=== PATIENT | female | born 1955 | race Caucasian/White ===

== ENCOUNTER 2022-09-16 17:35 | Inpatient (IN) | payer MEDICARE, SELFPAY ==
[2022-09-16 18:28] VITALS: BP 136/63; PULSE 81; RESP 18; TEMP 36.7; O2SAT 98
--- NOTE | 2022-09-16 18:51 | PC.ADMIT ---
Pt admitted from [facility] after stating she wanted to hurt herself after losing her by suicide and also losing her mother. Pt A&O x4. Ambulating independently and steady on ft. Pt hungry and eating sandwich upon admission. Pt to BR x2 during admission then requesting something for diarrhea. Pt upset 2 no TV in room. States falls asleep with TV on and states can't sleep without it. Informed of inability to move bed and safety issues on this floor. Pt surprised but compliant.
[2022-09-16] MEDS: Acetaminophen 325 MG TABLET 650 MG PO (21:23)
[2022-09-16] MEDS: hydrOXYzine HCL 25 MG TABLET PO (21:23)
--- NOTE | 2022-09-16 22:36 | PC.ADMIT ---
Kirk was admitted to S1 at 1746 from [facility] on a CV for treatment of MDD and alcohol use disorder. Precipitant of admission include increased depression, helplessness, homelessness, and hopelessness. Patient also reported the recent of her first husbands mother (Grandmother of her children) last week, as well as the other her in June via suicide.?Kirk is alert and oriented x 4, but reports. Per crisis assessment patient was suicidal. Patient reported that she has been homeless since june and ?my son told me to go to the hospital and tell them I want to kill myself and they will give me a place to stay?. Patient denied SI/HI/AH/VH during admission assessment. Patient reported that she drinks daily about 3 to 4 beers. During the interview pt stated ?My son bought me 3 beers before going to the ED so that way I would have alcohol in my system?. Last drin 09/15/2021 prior to arriving at [facility]. Patient started on CIWA q 4 hours, scored a 5 upon admission. Thought process is linear, clear, and organized. Reported appetite is ?very good?. Reported sleep has been poor. Reported she receives 400 mg of seroquel at bedtime and still has difficulty falling asleep. Pt reports that she has a history of substance abuse, but has not had any use in greater than 5 years per pt report. Reports Degenerative disc disease, patient requesting ?something stronger than tylenol. I have had tylenol with codeine, perks in the past?. Pt had UTI in July to which she completed a course of antibiotics. Per crisis assessment seizure disorder, two seizures in 2016, but none since. Patient does not take any anti seizure medications. Crisis assessment states that she has thyroid d/o. No acute distress noted or reported. 15 minute safety checks initiated. ?
[2022-09-16] MEDS: busPIRone HCl 5 MG TABLET 15 MG PO (23:22)
[2022-09-16] MEDS: QUEtiapine Fumarate 400 MG TABLET PO (23:22)
[2022-09-16] MEDS: LORazepam 1 MG TABLET PO (23:25)
[2022-09-17] MEDS: traZODone HCL 50 MG TABLET PO ×2 (00:55→23:39)
[2022-09-17] MEDS: Melatonin 3 MG TABLET PO (00:55)
[2022-09-17 08:41] LABS: Alanine Aminotransferase 10 U/L (0-31); Albumin Level 3.3 g/dL (3.5-5.0); Alkaline Phosphatase 48 U/L (39-117); Anion Gap 12 (12-20); Aspartate Amino Transferase 11 U/L (5-31); Bilirubin Total 0.6 mg/dL (0.0-1.0); Blood Urea Nitrogen 27 mg/dL (9-16); Calcium 8.6 mg/dL (8.4-10.2); Carbon Dioxide 30 mmol/L (22-29); Chloride 103 mmol/L (96-108); Cholesterol 167 mg/dL; Estimated Glomerular Filt Rate > 60; Glucose Fasting 97 mg/dL (60-99); HDL Cholesterol 71 mg/dL; LDL Cholesterol Calculated 89 mg/dl; Potassium 4.3 mmol/L (3.3-5.1); Sodium 141 mmol/L (135-145); Total Protein 5.4 g/dL (6.5-8.0); Triglycerides 38 mg/dL
[2022-09-17] MEDS: busPIRone HCl 5 MG TABLET 15 MG PO ×2 (09:13→21:44)
[2022-09-17] MEDS: Cyanocobalamin (Vitamin B-12) 1,000 MCG TABLET 1000 MCG PO (09:13)
[2022-09-17 09:33] VITALS: BP 129/61; PULSE 89; RESP 18; TEMP 36.1; O2SAT 94
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
--- NOTE | 2022-09-17 16:10 | HO.PM.IMCN ---
History of Present Illness Data of Consult Service Date: 09/17/22 Primary Care Provider: Naheed Maurer NP [facility] Reason for consult: Admission H&P Pt is a 66-year-old female with a PMH significant for MDD, anxiety, alcohol dependence, and degenerative arthritis of the lumbar spine who is seen for admission history and physical to the geripsych unit. Pt complains of chronic back pain, for which Tylenol offers little relief. Patient otherwise has no acute complaints. Denies chest pain/pressure, palpitations. No shortness of breath. Denies fever, chills, nausea, vomiting, abdominal pain. No changes in bowel or bladder habits. Review of Systems Review of Systems: Negative except for that which is stated in the HPI PMFSH Social History Household Members: None Housing: Homeless Do you presently have visiting nurse or other home services: No Patient Tobacco Use Status: Former Tobacco user Smoked in Last 30 Days: No Patient Interested in Nicotine Replacement: No Patient Given Instructions on How to Stop Smoking: No Second Hand Smoke Exposure: No Use of substances other than those prescribed or required for medical reasons: No Currently Displaying Signs/Symptoms of Drug Intoxication Withdrawal: No Have you been hit, kicked, punched, or otherwise hurt by someone within the past year? If so, by whom?: No Do you feel safe in your current relationship?: No Current Relationship Is there a partner from a previous relationship who is making you feel unsafe now?: No Are you made to feel afraid or neglected: No Spiritual Healthcare Practices: Patient denies Adventist Healthcare Practices: Patient denies Cultural Healthcare Practices: Patient denies Advance Directives: No Advance Directives Information Provided: No Do you have thoughts of harming others: None Do you have a plan to hurt others: No Plan Recently lost weight without trying: No Eating poorly because of decreased appetite: No Nutrition Risks: No Nutritional Risk Patient : No : No Poor oral hygiene: No Meds Allergies Allergy/AdvReac Type Severity Reaction Status Date / Time Unable to Assess Allergy Unverified 09/16/22 18:19 Active Medications: Current Medications Acetaminophen (Acetaminophen 325 Mg Tablet) 650 mg PO Q6H PRN PRN Reason: Headache/Pain Mild Scale (1-3) Last Admin: 09/16/22 21:23 Dose: 650 mg Al Hydroxide/Mg Hydroxide (Magnesium Hydrox/Alum Hydrox 30 Ml Oral.Susp) 30 ml PO Q6H PRN PRN Reason: Heartburn/Nausea Buspirone HCl (Buspirone Hcl 5 Mg Tablet) 15 mg PO BID [facility] Last Admin: 09/17/22 09:13 Dose: 15 mg Cyanocobalamin (Cyanocobalamin (Vitamin B-12) 1,000 Mcg Tablet) 1,000 mcg PO DAILY [facility] Last Admin: 09/17/22 09:13 Dose: 1,000 mcg Hydroxyzine HCl (Hydroxyzine Hcl 25 Mg Tablet) 25 mg PO Q6H PRN PRN Reason: Anxiety Last Admin: 09/16/22 21:23 Dose: 25 mg Loperamide HCl (Loperamide Hcl 2 Mg Capsule) 4 mg PO Q4H PRN PRN Reason: Diarrhea Lorazepam (Lorazepam 1 Mg Tablet) 1 mg PO Q4H PRN PRN Reason: Alcohol Withdrawal Last Admin: 09/16/22 23:25 Dose: 1 mg Magnesium Hydroxide (Milk Of Magnesia 30 Ml Oral.Susp) 30 ml PO DAILY PRN PRN Reason: Constipation Melatonin (Melatonin 3 Mg Tablet) 3 mg PO BEDTIME PRN PRN Reason: Sleep Last Admin: 09/17/22 00:55 Dose: 3 mg Mirtazapine (Mirtazapine 15 Mg Tablet) 15 mg PO BEDTIME TISHA Naltrexone HCl (Naltrexone Hcl 50 Mg Tablet) 50 mg PO DAILY [facility] Quetiapine Fumarate (Quetiapine Fumarate 400 Mg Tablet) 400 mg PO BEDTIME [facility] Last Admin: 09/16/22 23:22 Dose: 400 mg Trazodone HCl (Trazodone Hcl 50 Mg Tablet) 50 mg PO BEDTIME MRX1 PRN PRN Reason: Insomnia Last Admin: 09/17/22 00:55 Dose: 50 mg Home Medications Medication Instructions Recorded Confirmed Last Taken Type buspirone 15 mg tablet 1 tab PO BID 09/16/22 09/16/22 09/16/22 07:00 History cyanocobalamin (vitamin B-12) 1,000 mcg PO DAILY 09/16/22 09/16/22 09/16/22 07:00 History melatonin 3 mg PO BEDTIME PRN Sleep 09/16/22 09/16/22 Unknown History quetiapine 400 mg tablet 1 tab PO BEDTIME 09/16/22 09/16/22 09/16/22 01:00 History Physical Exam Vital Signs and Narrative: Vital Signs: Last Vital Signs Temp 97.0 F 09/17/22 09:33 Pulse 89 09/17/22 09:33 Resp 18 09/17/22 09:33 BP 129/61 09/17/22 09:33 Pulse Ox 94 09/17/22 09:33 O2 Del Method 09/17/22 09:33 General: AOx3, no acute distress Resp: CTA bilaterally CVS: S1, S2, RRR GI: +BS, NT, no distention Skin: No rash Neuro: Cranial nerves II-XII grossly intact. Motor grossly intact Back: Mildly tender to palpation Extremities: No edema Psych: Appropriate affect Results Labs 09/17/22 08:01 Labs: Laboratory Results - last 24 hr 09/17/22 08:01 Anion Gap 12 Estim Creat Clear Calc TNP Estimated GFR > 60 Fasting Glucose 97 Calcium 8.6 Total Bilirubin 0.6 AST 11 ALT 10 Alkaline Phosphatase 48 Total Protein 5.4 L Albumin 3.3 L Triglycerides 38 Cholesterol 167 LDL Cholesterol, Calc 89 HDL Cholesterol 71 Assessment and Plan (1) Degenerative arthritis of lumbar spine: Status: Acute Plan Pt is a 66-year-old female with a PMH significant for MDD, anxiety, alcohol dependence, and degenerative arthritis of the lumbar spine who is seen for admission history and physical to the geripsych unit. Pt complains of chronic back pain, for which Tylenol offers little relief. Patient otherwise has no acute complaints. Back pain, chronic Acetaminophen p.r.n. for pain management Encourage stretching and ambulation Mental health Plan as per Psychiatry team Thank you for allowing us to participate in the care this patient. Signing of this time. Please contact us with any acute questions or concerns. Time Spent With Patient Time: Total time managing care of this patient today ____ minutes.
[2022-09-17 19:20] VITALS: BP 135/63; PULSE 93; RESP 18; TEMP 36.6; O2SAT 93
[2022-09-17] MEDS: hydrOXYzine HCL 25 MG TABLET PO (20:35)
[2022-09-17] MEDS: QUEtiapine Fumarate 400 MG TABLET PO (21:44)
[2022-09-17] MEDS: Mirtazapine 15 MG TABLET PO (21:44)
[2022-09-18 06:00] VITALS: BP 126/57; PULSE 90; RESP 20; TEMP 36.9; O2SAT 99
[2022-09-18] MEDS: busPIRone HCl 5 MG TABLET 15 MG PO ×2 (10:45→22:07)
[2022-09-18] MEDS: Cyanocobalamin (Vitamin B-12) 1,000 MCG TABLET 1000 MCG PO (10:46)
[2022-09-18] MEDS: hydrOXYzine HCL 25 MG TABLET PO ×2 (10:46→17:59)
[2022-09-18] MEDS: Naltrexone HCl 50 MG TABLET PO (10:46)
--- NOTE | 2022-09-18 11:44 | HO.PSYCHPN ---
Subjective Subjective Date of Service: 09/18/22 Reason For Visit: Suicidal ideation Interim History: asking about referal to rehab for AUD, referred to speak with SW on tuesday. asking for PRN for anxiety, was educated re hydroxyzine she already has available. no other complaints or requests. per staff, scored zero on CIWA today. slept OK last night. Mental Status Exam Mental Status Exam Patient Appearance: Well Grooomed and Appropriate Patient Orientation: Person, Place, Time and Situation Level of Consciousness: Awake and Appropriate Patient Behavior: Cooperative Mood Description: Calm Affect Description: Constricted Ability to Follow Directions: Good Speech Pattern: Clear Hallucinations: None Delusions: Not Present Thought Process: Linear Thought Content: positive for Circumstantial Judgement: Fair Diagnostics Vital Signs (24Hr): Vital Signs - 24 hr 09/17/22 19:20 Temperature 98 F Pulse Rate 93 Respiratory Rate 18 Blood Pressure 135/63 Pulse Oximetry 93 Oxygen Delivery Method Room Air Labs 09/17/22 08:01 Labs: Laboratory Results - last 48 hr 09/17/22 08:01 Sodium 141 Potassium 4.3 Chloride 103 Carbon Dioxide 30 H Anion Gap 12 BUN 27 H Creatinine 0.90 Estim Creat Clear Calc TNP Estimated GFR > 60 Fasting Glucose 97 Calcium 8.6 Total Bilirubin 0.6 AST 11 ALT 10 Alkaline Phosphatase 48 Total Protein 5.4 L Albumin 3.3 L Triglycerides 38 Cholesterol 167 LDL Cholesterol, Calc 89 HDL Cholesterol 71 Medications Medications Current Medications Acetaminophen (Acetaminophen 325 Mg Tablet) 650 mg PO Q6H PRN PRN Reason: Headache/Pain Mild Scale (1-3) Last Admin: 09/16/22 21:23 Dose: 650 mg Al Hydroxide/Mg Hydroxide (Magnesium Hydrox/Alum Hydrox 30 Ml Oral.Susp) 30 ml PO Q6H PRN PRN Reason: Heartburn/Nausea Buspirone HCl (Buspirone Hcl 5 Mg Tablet) 15 mg PO BID [facility] Last Admin: 09/18/22 10:45 Dose: 15 mg Cyanocobalamin (Cyanocobalamin (Vitamin B-12) 1,000 Mcg Tablet) 1,000 mcg PO DAILY [facility] Last Admin: 09/18/22 10:46 Dose: 1,000 mcg Hydroxyzine HCl (Hydroxyzine Hcl 25 Mg Tablet) 25 mg PO Q6H PRN PRN Reason: Anxiety Last Admin: 09/18/22 10:46 Dose: 25 mg Loperamide HCl (Loperamide Hcl 2 Mg Capsule) 4 mg PO Q4H PRN PRN Reason: Diarrhea Lorazepam (Lorazepam 1 Mg Tablet) 1 mg PO Q4H PRN PRN Reason: Alcohol Withdrawal Last Admin: 09/16/22 23:25 Dose: 1 mg Magnesium Hydroxide (Milk Of Magnesia 30 Ml Oral.Susp) 30 ml PO DAILY PRN PRN Reason: Constipation Melatonin (Melatonin 3 Mg Tablet) 3 mg PO BEDTIME PRN PRN Reason: Sleep Last Admin: 09/17/22 00:55 Dose: 3 mg Mirtazapine (Mirtazapine 15 Mg Tablet) 15 mg PO BEDTIME TISHA Last Admin: 09/17/22 21:44 Dose: 15 mg Naltrexone HCl (Naltrexone Hcl 50 Mg Tablet) 50 mg PO DAILY TISHA Last Admin: 09/18/22 10:46 Dose: 50 mg Quetiapine Fumarate (Quetiapine Fumarate 400 Mg Tablet) 400 mg PO BEDTIME TISHA Last Admin: 09/17/22 21:44 Dose: 400 mg Trazodone HCl (Trazodone Hcl 50 Mg Tablet) 50 mg PO BEDTIME MRX1 PRN PRN Reason: Insomnia Last Admin: 09/17/22 23:39 Dose: 50 mg Allergies Allergies Allergy/AdvReac Type Severity Reaction Status Date / Time Unable to Assess Allergy Unverified 09/16/22 18:19 Assessment & Plan Assessment & Plan (1) Degenerative arthritis of lumbar spine: Status: Acute Code(s): M47.816 - Spondylosis without myelopathy or radiculopathy, lumbar region (2) Depressive disorder: Status: Acute Code(s): F32.A - Depression, unspecified (3) Alcohol use disorder: Status: Acute Code(s): F10.90 - Alcohol use, unspecified, uncomplicated Plan The patient is a middle-aged female with a prior history of alcohol use disorder not treated as per her report admitted for suicidal ideation, according to the crisis report she had several episodes in June that she tried to overdose in a suicidal attempts due to psychosocial stressors.? At this moment she is homeless, she has limited social support and she reported depression with suicidal ideation.? Plan 1. Gather collateral information.? 2. I offered naltrexone for alcohol use disorder the patient agreed.? 3. The patient reports depression and she agreed to start Remeron 15 mg p.o. q.h.s. to target depression and insomnia.? 4. Continue medical workout.? 5. . CIWA? and reassess in 72 hours to discontinue to avoid alcohol withdrawal symptoms.? 6. Reassessment results 09/18: continue current mgmt. scoring low on CIWA. will DC tomorrow if that continues. asking for rehab. Reason for contiued inpatient stay Substantial Risk for: harm to self, inability to function and rapid decompensation Time Spent With Patient Time: Total time managing care of this patient today _15___ minutes.
[2022-09-18 17:16] VITALS: BP 143/65; PULSE 88
[2022-09-18 20:15] VITALS: BP 142/70; PULSE 100; RESP 17; TEMP 36.4; O2SAT 98
[2022-09-18] MEDS: Melatonin 3 MG TABLET PO (22:06)
[2022-09-18] MEDS: QUEtiapine Fumarate 400 MG TABLET PO (22:06)
[2022-09-18] MEDS: Mirtazapine 15 MG TABLET PO (22:07)
[2022-09-18] MEDS: Acetaminophen 325 MG TABLET 650 MG PO (22:13)
[2022-09-18] MEDS: traZODone HCL 50 MG TABLET PO (23:23)
[2022-09-19] MEDS: hydrOXYzine HCL 25 MG TABLET PO ×3 (02:10→23:17)
[2022-09-19] MEDS: Naltrexone HCl 50 MG TABLET PO (08:56)
[2022-09-19] MEDS: Cyanocobalamin (Vitamin B-12) 1,000 MCG TABLET 1000 MCG PO (08:57)
[2022-09-19 09:00] VITALS: BP 135/63; PULSE 69; RESP 16; TEMP 36.6; O2SAT 98
[2022-09-19] MEDS: busPIRone HCl 5 MG TABLET 15 MG PO ×2 (09:04→21:31)
[2022-09-19] MEDS: Acetaminophen 325 MG TABLET 650 MG PO ×2 (09:05→23:18)
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
[2022-09-19 13:27] VITALS: BMI 33.0
[2022-09-19] MEDS: Ketorolac Tromethamine 15 MG/ML VIAL IM (13:28)
[2022-09-19 18:00] VITALS: BP 116/59; PULSE 93; RESP 18; TEMP 36.4; O2SAT 98
[2022-09-19] MEDS: Mirtazapine 30 MG TABLET PO (21:31)
[2022-09-19] MEDS: QUEtiapine Fumarate 400 MG TABLET PO (21:32)
[2022-09-19] MEDS: Melatonin 3 MG TABLET PO (23:17)
[2022-09-20 07:30] VITALS: BP 153/63; PULSE 83; RESP 16; TEMP 36.2; O2SAT 98
[2022-09-20] MEDS: busPIRone HCl 5 MG TABLET 15 MG PO ×2 (10:29→21:44)
[2022-09-20] MEDS: Naltrexone HCl 50 MG TABLET PO (10:29)
[2022-09-20] MEDS: Cyanocobalamin (Vitamin B-12) 1,000 MCG TABLET 1000 MCG PO (10:29)
--- NOTE | 2022-09-20 11:32 | HO.PSYCHPN ---
Subjective Subjective Date of Service: 09/20/22 Reason For Visit: Suicidal ideation Subjective Notes: Conditional Voluntary Interim History: The nursing staff reported the patient had a verbal altercation with the staff yesterday since she wanted to watch a violent TV movie and day redirected her. She complained of back pain and she received Toradol IM with known prove min. She had been demanding and attention seeking. The staff reported that the patient disclosed that before coming here, while she was in the emergency room she was instructed by her sons to tell her that she was suicidal so she take an find her placement in the unit. On interview the patient denies new symptoms she is alert, oriented, future oriented. Mental Status Exam Mental Status Exam Patient Appearance: Well Grooomed and Appropriate Patient Orientation: Person, Place, Time and Situation Level of Consciousness: Awake and Appropriate Patient Behavior: Guarded Mood Description: Constricted Affect Description: Constricted and Labile Patient Cognition Impaired: Yes Ability to Follow Directions: Good Speech Pattern: Clear Hallucinations: None Delusions: Not Present Thought Process: Linear Thought Content: positive for Intact Judgement: Fair Diagnostics Vital Signs (24Hr): Vital Signs - 24 hr 09/19/22 18:00 09/20/22 07:30 Temperature 97.6 F 97.1 F Pulse Rate 93 83 Respiratory Rate 18 16 Blood Pressure 116/59 L 153/63 H Pulse Oximetry 98 98 Oxygen Delivery Method Room Air Room Air BMI result Body Mass Index 33.0 Labs 09/17/22 08:01 Medications Medications Current Medications Acetaminophen (Acetaminophen 325 Mg Tablet) 650 mg PO Q6H PRN PRN Reason: Headache/Pain Mild Scale (1-3) Last Admin: 09/19/22 23:18 Dose: 650 mg Al Hydroxide/Mg Hydroxide (Magnesium Hydrox/Alum Hydrox 30 Ml Oral.Susp) 30 ml PO Q6H PRN PRN Reason: Heartburn/Nausea Buspirone HCl (Buspirone Hcl 5 Mg Tablet) 15 mg PO BID [facility] Last Admin: 09/20/22 10:29 Dose: 15 mg Cyanocobalamin (Cyanocobalamin (Vitamin B-12) 1,000 Mcg Tablet) 1,000 mcg PO DAILY [facility] Last Admin: 09/20/22 10:29 Dose: 1,000 mcg Hydroxyzine HCl (Hydroxyzine Hcl 25 Mg Tablet) 25 mg PO Q6H PRN PRN Reason: Anxiety Last Admin: 09/19/22 23:17 Dose: 25 mg Loperamide HCl (Loperamide Hcl 2 Mg Capsule) 4 mg PO Q4H PRN PRN Reason: Diarrhea Magnesium Hydroxide (Milk Of Magnesia 30 Ml Oral.Susp) 30 ml PO DAILY PRN PRN Reason: Constipation Melatonin (Melatonin 3 Mg Tablet) 3 mg PO BEDTIME PRN PRN Reason: Sleep Last Admin: 09/19/22 23:17 Dose: 3 mg Mirtazapine (Mirtazapine 30 Mg Tablet) 30 mg PO BEDTIME [facility] Last Admin: 09/19/22 21:31 Dose: 30 mg Naltrexone HCl (Naltrexone Hcl 50 Mg Tablet) 50 mg PO DAILY [facility] Last Admin: 09/20/22 10:29 Dose: 50 mg Quetiapine Fumarate (Quetiapine Fumarate 400 Mg Tablet) 400 mg PO BEDTIME [facility] Last Admin: 09/19/22 21:32 Dose: 400 mg Trazodone HCl (Trazodone Hcl 50 Mg Tablet) 50 mg PO BEDTIME MRX1 PRN PRN Reason: Insomnia Last Admin: 09/18/22 23:23 Dose: 50 mg Allergies Allergies Allergy/AdvReac Type Severity Reaction Status Date / Time codeine AdvReac Headache Verified 09/19/22 13:31 Assessment & Plan Assessment & Plan (1) Degenerative arthritis of lumbar spine: Status: Acute Code(s): M47.816 - Spondylosis without myelopathy or radiculopathy, lumbar region (2) Depressive disorder: Status: Acute Code(s): F32.A - Depression, unspecified (3) Alcohol use disorder: Status: Acute Code(s): F10.90 - Alcohol use, unspecified, uncomplicated Plan The patient is a middle-aged female with a prior history of alcohol use disorder not treated as per her report admitted for suicidal ideation, according to the crisis report she had several episodes in June that she tried to overdose in a suicidal attempts due to psychosocial stressors.? At this moment she is homeless, she has limited social support and she reported depression with suicidal ideation.? Plan 1. Gather collateral information.? 2. I offered naltrexone for alcohol use disorder the patient agreed.? 3. The patient reports depression and she agreed to start Remeron 15 mg p.o. q.h.s. to target depression and insomnia.? 4. Continue medical workout.? 5. . CIWA? and reassess in 72 hours to discontinue to avoid alcohol withdrawal symptoms.? CIWA discontinue to in April 20. 6. Reassessment results 7. Discharge planning to substance abuse program Reason for contiued inpatient stay Substantial Risk for: inability to function, rapid decompensation and med/psych decompensation Time Spent With Patient Time: Total time managing care of this patient today _20___ minutes.
[2022-09-20] MEDS: hydrOXYzine HCL 25 MG TABLET PO ×2 (17:40→23:54)
[2022-09-20 18:00] VITALS: BP 183/76; PULSE 83; RESP 18; TEMP 36.4; O2SAT 96
[2022-09-20] MEDS: Mirtazapine 30 MG TABLET PO (21:44)
[2022-09-20] MEDS: QUEtiapine Fumarate 400 MG TABLET PO (21:45)
[2022-09-20] MEDS: traZODone HCL 50 MG TABLET PO (23:54)
[2022-09-21 07:30] VITALS: BP 139/69; PULSE 71; RESP 16; TEMP 36.4; O2SAT 96
[2022-09-21] MEDS: Cyanocobalamin (Vitamin B-12) 1,000 MCG TABLET 1000 MCG PO (10:37)
[2022-09-21] MEDS: busPIRone HCl 5 MG TABLET 15 MG PO ×2 (10:37→20:38)
[2022-09-21] MEDS: Naltrexone HCl 50 MG TABLET PO (10:38)
[2022-09-21] MEDS: hydrOXYzine HCL 25 MG TABLET PO ×2 (11:31→20:39)
--- NOTE | 2022-09-21 12:19 | P.PNPSI_ITS ---
Subjective Subjective Date of Service: 09/21/22 Reason For Visit: Suicidal ideation Subjective Notes: Conditional Voluntary Interim History: The nursing staff reported the patient slept well last night, she had been demanding at times but redirectable. The family welfare social work professor reported they are referring her to different programs. On interview the patient denies suicidal thoughts no side effects with the current treatment. Mental Status Exam Mental Status Exam Patient Appearance: Well Grooomed and Appropriate Patient Orientation: Person, Place and Situation Level of Consciousness: Awake and Appropriate Patient Behavior: Cooperative Mood Description: Calm Affect Description: Constricted Patient Cognition Impaired: No Ability to Follow Directions: Good Speech Pattern: Clear Hallucinations: None Delusions: Not Present Thought Process: Linear Thought Content: positive for Circumstantial Judgement: Fair Diagnostics Vital Signs (24Hr): Vital Signs - 24 hr 09/20/22 18:00 Temperature 97.6 F Pulse Rate 83 Respiratory Rate 18 Blood Pressure 183/76 H Pulse Oximetry 96 Oxygen Delivery Method Room Air BMI result Body Mass Index 33.0 Labs 09/17/22 08:01 Medications Medications Current Medications Acetaminophen (Acetaminophen 325 Mg Tablet) 650 mg PO Q6H PRN PRN Reason: Headache/Pain Mild Scale (1-3) Last Admin: 09/19/22 23:18 Dose: 650 mg Al Hydroxide/Mg Hydroxide (Magnesium Hydrox/Alum Hydrox 30 Ml Oral.Susp) 30 ml PO Q6H PRN PRN Reason: Heartburn/Nausea Buspirone HCl (Buspirone Hcl 5 Mg Tablet) 15 mg PO BID [facility] Last Admin: 09/21/22 10:37 Dose: 15 mg Cyanocobalamin (Cyanocobalamin (Vitamin B-12) 1,000 Mcg Tablet) 1,000 mcg PO DAILY [facility] Last Admin: 09/21/22 10:37 Dose: 1,000 mcg Hydroxyzine HCl (Hydroxyzine Hcl 25 Mg Tablet) 25 mg PO Q6H PRN PRN Reason: Anxiety Last Admin: 09/21/22 11:31 Dose: 25 mg Loperamide HCl (Loperamide Hcl 2 Mg Capsule) 4 mg PO Q4H PRN PRN Reason: Diarrhea Magnesium Hydroxide (Milk Of Magnesia 30 Ml Oral.Susp) 30 ml PO DAILY PRN PRN Reason: Constipation Melatonin (Melatonin 3 Mg Tablet) 3 mg PO BEDTIME PRN PRN Reason: Sleep Last Admin: 02/26/23 23:17 Dose: 3 mg Mirtazapine (Mirtazapine 30 Mg Tablet) 30 mg PO BEDTIME [facility] Last Admin: 09/20/22 21:44 Dose: 30 mg Naltrexone HCl (Naltrexone Hcl 50 Mg Tablet) 50 mg PO DAILY [facility] Last Admin: 09/21/22 10:38 Dose: 50 mg Quetiapine Fumarate (Quetiapine Fumarate 400 Mg Tablet) 400 mg PO BEDTIME [facility] Last Admin: 09/20/22 21:45 Dose: 400 mg Trazodone HCl (Trazodone Hcl 50 Mg Tablet) 50 mg PO BEDTIME MRX1 PRN PRN Reason: Insomnia Last Admin: 09/20/22 23:54 Dose: 50 mg Allergies Allergies Allergy/AdvReac Type Severity Reaction Status Date / Time codeine AdvReac Headache Verified 09/19/22 13:31 Assessment & Plan Assessment & Plan (1) Degenerative arthritis of lumbar spine: Status: Acute Code(s): M47.816 - Spondylosis without myelopathy or radiculopathy, lumbar region (2) Depressive disorder: Status: Acute Code(s): F32.A - Depression, unspecified (3) Alcohol use disorder: Status: Acute Code(s): F10.90 - Alcohol use, unspecified, uncomplicated Plan The patient is a middle-aged female with a prior history of alcohol use disorder not treated as per her report admitted for suicidal ideation, according to the crisis report she had several episodes in June that she tried to overdose in a suicidal attempts due to psychosocial stressors.? At this moment she is homeless, she has limited social support and she reported depression with suicidal ideation.? Plan 1. Gather collateral information.? 2. I offered naltrexone for alcohol use disorder the patient agreed.? 3. The patient reports depression and she agreed to start Remeron 15 mg p.o. q.h.s. to target depression and insomnia.? 4. Continue medical workout.? 5. . CIWA? and reassess in 72 hours to discontinue to avoid alcohol withdrawal symptoms.? CIWA discontinue to in September 20. 6. Reassessment results 7. Discharge planning to substance abuse program Reason for contiued inpatient stay Substantial Risk for: inability to function, rapid decompensation and med/psych decompensation Time Spent With Patient Time: Total time managing care of this patient today __20__ minutes.
[2022-09-21 18:00] VITALS: BP 143/67; PULSE 78; RESP 16; TEMP 36.6; O2SAT 93
[2022-09-21] MEDS: QUEtiapine Fumarate 400 MG TABLET PO (20:39)
[2022-09-21] MEDS: Mirtazapine 30 MG TABLET PO (20:39)
[2022-09-21] MEDS: traZODone HCL 50 MG TABLET PO (22:42)
[2022-09-22] MEDS: hydrOXYzine HCL 25 MG TABLET PO (05:31)
[2022-09-22 06:00] VITALS: BP 132/76; PULSE 94; RESP 18; TEMP 36.8; O2SAT 98
[2022-09-22] MEDS: Naltrexone HCl 50 MG TABLET PO (11:47)
[2022-09-22] MEDS: busPIRone HCl 5 MG TABLET 15 MG PO ×2 (11:47→20:17)
[2022-09-22] MEDS: Cyanocobalamin (Vitamin B-12) 1,000 MCG TABLET 1000 MCG PO (11:47)
--- NOTE | 2022-09-22 12:18 | HO.PSYCHPN ---
Subjective Subjective Date of Service: 09/22/22 Reason For Visit: Suicidal ideation Subjective Notes: Conditional Voluntary Interim History: The nursing staff reported the patient complained of anxiety, she was seen that she has intrusive and try to help other patients. The occupational therapist reported that she has not participating any groups. The geriatric social work professor reported that she was referred to [facility], shelters, disability housing and others. On interview the patient denies new symptoms, waiting for placement. No signs or symptoms of alcohol withdrawal, tolerating fairly well here medications. Mental Status Exam Mental Status Exam Patient Appearance: Well Grooomed and Appropriate Patient Orientation: Person and Situation Level of Consciousness: Awake and Appropriate Patient Behavior: Guarded and Passive Mood Description: Calm Affect Description: Constricted Patient Cognition Impaired: Yes Ability to Follow Directions: Good Speech Pattern: Clear Hallucinations: None Delusions: Not Present Thought Process: Linear Thought Content: positive for [place] and positive for Circumstantial Judgement: Fair Diagnostics Vital Signs (24Hr): Vital Signs - 24 hr 09/21/22 18:00 09/22/22 06:00 Temperature 97.9 F 98.3 F Pulse Rate 78 94 Respiratory Rate 16 18 Blood Pressure 143/67 H 132/76 Pulse Oximetry 93 98 Oxygen Delivery Method Room Air Room Air BMI result Body Mass Index 33.0 Labs 09/17/22 08:01 Medications Medications Current Medications Acetaminophen (Acetaminophen 325 Mg Tablet) 650 mg PO Q6H PRN PRN Reason: Headache/Pain Mild Scale (1-3) Last Admin: 09/19/22 23:18 Dose: 650 mg Al Hydroxide/Mg Hydroxide (Magnesium Hydrox/Alum Hydrox 30 Ml Oral.Susp) 30 ml PO Q6H PRN PRN Reason: Heartburn/Nausea Buspirone HCl (Buspirone Hcl 5 Mg Tablet) 15 mg PO BID [facility] Last Admin: 09/22/22 11:47 Dose: 15 mg Cyanocobalamin (Cyanocobalamin (Vitamin B-12) 1,000 Mcg Tablet) 1,000 mcg PO DAILY [facility] Last Admin: 09/22/22 11:47 Dose: 1,000 mcg Hydroxyzine HCl (Hydroxyzine Hcl 25 Mg Tablet) 25 mg PO Q6H PRN PRN Reason: Anxiety Last Admin: 09/22/22 05:31 Dose: 25 mg Loperamide HCl (Loperamide Hcl 2 Mg Capsule) 4 mg PO Q4H PRN PRN Reason: Diarrhea Magnesium Hydroxide (Milk Of Magnesia 30 Ml Oral.Susp) 30 ml PO DAILY PRN PRN Reason: Constipation Melatonin (Melatonin 3 Mg Tablet) 3 mg PO BEDTIME PRN PRN Reason: Sleep Last Admin: 09/19/22 23:17 Dose: 3 mg Mirtazapine (Mirtazapine 30 Mg Tablet) 30 mg PO BEDTIME [facility] Last Admin: 09/21/22 20:39 Dose: 30 mg Naltrexone HCl (Naltrexone Hcl 50 Mg Tablet) 50 mg PO DAILY [facility] Last Admin: 09/22/22 11:47 Dose: 50 mg Quetiapine Fumarate (Quetiapine Fumarate 400 Mg Tablet) 400 mg PO BEDTIME [facility] Last Admin: 09/21/22 20:39 Dose: 400 mg Trazodone HCl (Trazodone Hcl 50 Mg Tablet) 50 mg PO BEDTIME MRX1 PRN PRN Reason: Insomnia Last Admin: 09/21/22 22:42 Dose: 50 mg Allergies Allergies Allergy/AdvReac Type Severity Reaction Status Date / Time codeine AdvReac Headache Verified 09/19/22 13:31 Assessment & Plan Assessment & Plan (1) Degenerative arthritis of lumbar spine: Status: Acute Code(s): M47.816 - Spondylosis without myelopathy or radiculopathy, lumbar region (2) Depressive disorder: Status: Acute Code(s): F32.A - Depression, unspecified (3) Alcohol use disorder: Status: Acute Code(s): F10.90 - Alcohol use, unspecified, uncomplicated Plan The patient is a middle-aged female with a prior history of alcohol use disorder not treated as per her report admitted for suicidal ideation, according to the crisis report she had several episodes in June that she tried to overdose in a suicidal attempts due to psychosocial stressors.? At this moment she is homeless, she has limited social support and she reported depression with suicidal ideation.? Plan 1. Gather collateral information.? 2. I offered naltrexone for alcohol use disorder the patient agreed.? 3. The patient reports depression and she agreed to start Remeron 15 mg p.o. q.h.s. to target depression and insomnia.? 4. Continue medical workout.? 5. . CIWA? and reassess in 72 hours to discontinue to avoid alcohol withdrawal symptoms.? CIWA discontinue to in September 20. 6. Reassessment results 7. Discharge planning to substance abuse program 8. Add Seroquel 50 mg at 7 pm. Reason for contiued inpatient stay Substantial Risk for: inability to function, rapid decompensation and med/psych decompensation Time Spent With Patient Time: Total time managing care of this patient today __20__ minutes.
[2022-09-22] MEDS: QUEtiapine Fumarate 50 MG TABLET PO (17:59)
[2022-09-22 18:00] VITALS: BP 141/66; PULSE 78; RESP 18; TEMP 36.2; O2SAT 98
[2022-09-22] MEDS: Mirtazapine 30 MG TABLET PO (20:17)
[2022-09-22] MEDS: traZODone HCL 50 MG TABLET PO (22:24)
[2022-09-22] MEDS: QUEtiapine Fumarate 400 MG TABLET PO (22:24)
[2022-09-23] MEDS: traZODone HCL 50 MG TABLET PO ×2 (01:19→23:52)
[2022-09-23 06:00] VITALS: BP 136/59; PULSE 82; RESP 18; TEMP 36.2; O2SAT 96
[2022-09-23 07:00] VITALS: BMI 33.3
[2022-09-23] MEDS: Cyanocobalamin (Vitamin B-12) 1,000 MCG TABLET 1000 MCG PO (09:49)
[2022-09-23] MEDS: QUEtiapine Fumarate 50 MG TABLET PO (09:50)
[2022-09-23] MEDS: busPIRone HCl 5 MG TABLET 15 MG PO ×2 (09:50→21:58)
[2022-09-23] MEDS: Naltrexone HCl 50 MG TABLET PO (09:50)
--- NOTE | 2022-09-23 13:27 | P.PNPSI_ITS ---
Subjective Subjective Date of Service: 09/23/22 Reason For Visit: Suicidal ideation Subjective Notes: Conditional Voluntary Interim History: The nursing staff reported the patient had been compliant with treatment, she was seen in the unit, interacting appropriately with peers and staff. On interview the patient denies new symptoms, waiting for placement. Mental Status Exam Mental Status Exam Patient Appearance: Well Grooomed and Appropriate Patient Orientation: Person, Place, Time and Situation Level of Consciousness: Awake, Appropriate and Follows Commands Patient Behavior: Appropriate and Cooperative Mood Description: Calm Affect Description: Constricted Patient Cognition Impaired: No Ability to Follow Directions: Good Speech Pattern: Clear Hallucinations: None Delusions: Not Present Thought Process: Linear Thought Content: positive for [place] and positive for Circumstantial Judgement: Fair Diagnostics Vital Signs (24Hr): Vital Signs - 24 hr 09/22/22 18:00 09/23/22 06:00 Temperature 97.1 F 97.2 F Pulse Rate 78 82 Respiratory Rate 18 18 Blood Pressure 141/66 H 136/59 L Pulse Oximetry 98 96 Oxygen Delivery Method Room Air Room Air BMI result Body Mass Index 33.3 Labs 09/17/22 08:01 Medications Medications Current Medications Acetaminophen (Acetaminophen 325 Mg Tablet) 650 mg PO Q6H PRN PRN Reason: Headache/Pain Mild Scale (1-3) Last Admin: 09/19/22 23:18 Dose: 650 mg Al Hydroxide/Mg Hydroxide (Magnesium Hydrox/Alum Hydrox 30 Ml Oral.Susp) 30 ml PO Q6H PRN PRN Reason: Heartburn/Nausea Buspirone HCl (Buspirone Hcl 5 Mg Tablet) 15 mg PO BID [facility] Last Admin: 09/23/22 09:50 Dose: 15 mg Cyanocobalamin (Cyanocobalamin (Vitamin B-12) 1,000 Mcg Tablet) 1,000 mcg PO DAILY [facility] Last Admin: 09/23/22 09:49 Dose: 1,000 mcg Hydroxyzine HCl (Hydroxyzine Hcl 25 Mg Tablet) 25 mg PO Q6H PRN PRN Reason: Anxiety Last Admin: 09/22/22 05:31 Dose: 25 mg Loperamide HCl (Loperamide Hcl 2 Mg Capsule) 4 mg PO Q4H PRN PRN Reason: Diarrhea Magnesium Hydroxide (Milk Of Magnesia 30 Ml Oral.Susp) 30 ml PO DAILY PRN PRN Reason: Constipation Melatonin (Melatonin 3 Mg Tablet) 3 mg PO BEDTIME PRN PRN Reason: Sleep Last Admin: 09/19/22 23:17 Dose: 3 mg Mirtazapine (Mirtazapine 30 Mg Tablet) 30 mg PO BEDTIME [facility] Last Admin: 09/22/22 20:17 Dose: 30 mg Naltrexone HCl (Naltrexone Hcl 50 Mg Tablet) 50 mg PO DAILY [facility] Last Admin: 09/23/22 09:50 Dose: 50 mg Quetiapine Fumarate (Quetiapine Fumarate 400 Mg Tablet) 400 mg PO BEDTIME [facility] Last Admin: 09/22/22 22:24 Dose: 400 mg Quetiapine Fumarate (Quetiapine Fumarate 50 Mg Tablet) 50 mg PO DAILY [facility] Last Admin: 09/23/22 09:50 Dose: 50 mg Trazodone HCl (Trazodone Hcl 50 Mg Tablet) 50 mg PO BEDTIME MRX1 PRN PRN Reason: Insomnia Last Admin: 09/23/22 01:19 Dose: 50 mg Allergies Allergies Allergy/AdvReac Type Severity Reaction Status Date / Time codeine AdvReac Headache Verified 09/19/22 13:31 Assessment & Plan Assessment & Plan (1) Degenerative arthritis of lumbar spine: Status: Acute Code(s): M47.816 - Spondylosis without myelopathy or radiculopathy, lumbar region (2) Depressive disorder: Status: Acute Code(s): F32.A - Depression, unspecified (3) Alcohol use disorder: Status: Acute Code(s): F10.90 - Alcohol use, unspecified, uncomplicated Plan The patient is a middle-aged female with a prior history of alcohol use disorder not treated as per her report admitted for suicidal ideation, according to the crisis report she had several episodes in June that she tri ed to overdose in a suicidal attempts due to psychosocial stressors.? At this moment she is homeless, she has limited social support and she reported depression with suicidal ideation.? Plan 1. Gather collateral information.? 2. I offered naltrexone for alcohol use disorder the patient agreed.? 3. The patient reports depression and she agreed to start Remeron 15 mg p.o. q.h.s. to target depression and insomnia.? 4. Continue medical workout.? 5. . CIWA? and reassess in 72 hours to discontinue to avoid alcohol withdrawal symptoms.? CIWA discontinue to in September 20. 6. Reassessment results 7. Discharge planning to substance abuse program 8. Add Seroquel 50 mg at 7 pm. Reason for contiued inpatient stay Substantial Risk for: inability to function, rapid decompensation and med/psych decompensation Time Spent With Patient Time: Total time managing care of this patient today _20___ minutes.
[2022-09-23 18:00] VITALS: BP 148/68; PULSE 95; RESP 18; TEMP 36.8; O2SAT 100
[2022-09-23] MEDS: hydrOXYzine HCL 25 MG TABLET PO (21:20)
[2022-09-23] MEDS: Mirtazapine 30 MG TABLET PO (21:58)
[2022-09-23] MEDS: Acetaminophen 325 MG TABLET 650 MG PO (21:58)
[2022-09-23] MEDS: QUEtiapine Fumarate 400 MG TABLET PO (21:58)
[2022-09-24] MEDS: traZODone HCL 50 MG TABLET PO ×2 (01:00→22:32)
[2022-09-24 07:45] VITALS: BP 114/53; PULSE 83; RESP 18; TEMP 36.1; O2SAT 99
[2022-09-24] MEDS: QUEtiapine Fumarate 50 MG TABLET PO (08:12)
[2022-09-24] MEDS: Naltrexone HCl 50 MG TABLET PO (08:12)
[2022-09-24] MEDS: busPIRone HCl 5 MG TABLET 15 MG PO ×2 (08:12→21:55)
[2022-09-24] MEDS: Cyanocobalamin (Vitamin B-12) 1,000 MCG TABLET 1000 MCG PO (08:12)
--- NOTE | 2022-09-24 08:14 | PC.NURSE ---
Pt. with good balance and steady gait. Does not require assistive devices or assist from staff to transfer or ambulate. Bed alarm discontinued.
--- NOTE | 2022-09-24 09:24 | P.PNPSI_ITS ---
Subjective Subjective Date of Service: 09/24/22 Reason For Visit: Suicidal ideation Subjective Notes: Conditional Voluntary Interim History: Patient with full affect future oriented on Seroquel and naltrexone Medication Compliance: Yes Mental Status Exam Mental Status Exam Patient Appearance: Well Grooomed and Appropriate Patient Orientation: Person, Place, Time and Situation Level of Consciousness: Awake, Appropriate and Follows Commands Patient Behavior: Appropriate and Cooperative Mood Description: Calm Affect Description: Constricted Patient Cognition Impaired: No Ability to Follow Directions: Good Speech Pattern: Clear Hallucinations: None Delusions: Not Present Thought Process: Linear Thought Content: positive for [place] and positive for Circumstantial Judgement: Fair Diagnostics Vital Signs (24Hr): Vital Signs - 24 hr 09/23/22 18:00 Temperature 98.2 F Pulse Rate 95 Respiratory Rate 18 Blood Pressure 148/68 H Pulse Oximetry 100 Oxygen Delivery Method Room Air BMI result Body Mass Index 33.3 Labs 09/17/22 08:01 Medications Medications Current Medications Acetaminophen (Acetaminophen 325 Mg Tablet) 650 mg PO Q6H PRN PRN Reason: Headache/Pain Mild Scale (1-3) Last Admin: 09/23/22 21:58 Dose: 650 mg Al Hydroxide/Mg Hydroxide (Magnesium Hydrox/Alum Hydrox 30 Ml Oral.Susp) 30 ml PO Q6H PRN PRN Reason: Heartburn/Nausea Buspirone HCl (Buspirone Hcl 5 Mg Tablet) 15 mg PO BID [facility] Last Admin: 09/24/22 08:12 Dose: 15 mg Cyanocobalamin (Cyanocobalamin (Vitamin B-12) 1,000 Mcg Tablet) 1,000 mcg PO DAILY [facility] Last Admin: 09/24/22 08:12 Dose: 1,000 mcg Hydroxyzine HCl (Hydroxyzine Hcl 25 Mg Tablet) 25 mg PO Q6H PRN PRN Reason: Anxiety Last Admin: 09/23/22 21:20 Dose: 25 mg Loperamide HCl (Loperamide Hcl 2 Mg Capsule) 4 mg PO Q4H PRN PRN Reason: Diarrhea Magnesium Hydroxide (Milk Of Magnesia 30 Ml Oral.Susp) 30 ml PO DAILY PRN PRN Reason: Constipation Melatonin (Melatonin 3 Mg Tablet) 3 mg PO BEDTIME PRN PRN Reason: Sleep Last Admin: 09/19/22 23:17 Dose: 3 mg Mirtazapine (Mirtazapine 30 Mg Tablet) 30 mg PO BEDTIME [facility] Last Admin: 09/23/22 21:58 Dose: 30 mg Naltrexone HCl (Naltrexone Hcl 50 Mg Tablet) 50 mg PO DAILY [facility] Last Admin: 09/24/22 08:12 Dose: 50 mg Quetiapine Fumarate (Quetiapine Fumarate 400 Mg Tablet) 400 mg PO BEDTIME [facility] Last Admin: 09/23/22 21:58 Dose: 400 mg Quetiapine Fumarate (Quetiapine Fumarate 50 Mg Tablet) 50 mg PO DAILY [facility] Last Admin: 09/24/22 08:12 Dose: 50 mg Trazodone HCl (Trazodone Hcl 50 Mg Tablet) 50 mg PO BEDTIME MRX1 PRN PRN Reason: Insomnia Last Admin: 09/24/22 01:00 Dose: 50 mg Allergies Allergies Allergy/AdvReac Type Severity Reaction Status Date / Time codeine AdvReac Headache Verified 09/19/22 13:31 Assessment & Plan Assessment & Plan (1) Degenerative arthritis of lumbar spine: Status: Acute Code(s): M47.816 - Spondylosis without myelopathy or radiculopathy, lumbar region (2) Depressive disorder: Status: Acute Code(s): F32.A - Depression, unspecified (3) Alcohol use disorder: Status: Acute Code(s): F10.90 - Alcohol use, unspecified, uncomplicated Plan The patient is a middle-aged female with a prior history of alcohol us e disorder not treated as per her report admitted for suicidal ideation, according to the crisis report she had several episodes in June that she tried to overdose in a suicidal attempts due to psychosocial stressors.? At this moment she is homeless, she has limited social support and she reported depression with suicidal ideation.? Plan 1. Gather collateral information.? 2. I offered naltrexone for alcohol use disorder the patient agreed.? 3. The patient reports depression and she agreed to start Remeron 15 mg p.o. q.h.s. to target depression and insomnia.? 4. Continue medical workout.? 5. . CIWA? and reassess in 72 hours to discontinue to avoid alcohol withdrawal symptoms.? CIWA discontinue to in September 20. 6. Reassessment results 7. Discharge planning to substance abuse program 8. Add Seroquel 50 mg at 7 pm. 09/24/2022 Continue plan of care discharge planning Reason for contiued inpatient stay Substantial Risk for: inability to function and rapid decompensation Time Spent With Patient Time: Total time managing care of this patient today ____ minutes.
[2022-09-24 18:00] VITALS: BP 127/60; PULSE 79; RESP 18; TEMP 36.3
[2022-09-24] MEDS: Mirtazapine 30 MG TABLET PO (21:55)
[2022-09-24] MEDS: QUEtiapine Fumarate 400 MG TABLET PO (21:56)
[2022-09-24] MEDS: Acetaminophen 325 MG TABLET 650 MG PO (21:56)
[2022-09-24] MEDS: hydrOXYzine HCL 25 MG TABLET PO (22:32)
[2022-09-25] MEDS: traZODone HCL 50 MG TABLET PO ×2 (00:04→22:35)
[2022-09-25 07:30] VITALS: BP 111/52; PULSE 85; RESP 16; TEMP 37.2; O2SAT 96
--- NOTE | 2022-09-25 08:59 | P.PNPSI_ITS ---
Subjective Subjective Date of Service: 09/25/22 Reason For Visit: Suicidal ideation Subjective Notes: Conditional Voluntary Interim History: Patient with oddly expansive affect complains of restless leg denies self- harming thoughts complains of back pain Medication Compliance: Yes Mental Status Exam Mental Status Exam Patient Appearance: Well Grooomed and Appropriate Patient Orientation: Person, Place, Time and Situation Level of Consciousness: Awake, Appropriate and Follows Commands Patient Behavior: Appropriate, Cooperative and Good Eye Contact Mood Description: Calm and Appropriate Affect Description: Calm and Appropriate Patient Cognition Impaired: No Ability to Follow Directions: Good Speech Pattern: Clear Hallucinations: None Delusions: Not Present Thought Process: Linear Thought Content: positive for [place] and positive for Circumstantial Judgement: Fair Diagnostics Vital Signs (24Hr): Vital Signs - 24 hr 09/24/22 18:00 Temperature 97.3 F Pulse Rate 79 Respiratory Rate 18 Blood Pressure 127/60 Oxygen Delivery Method Room Air BMI result Body Mass Index 33.3 Labs 09/17/22 08:01 Medications Medications Current Medications Acetaminophen (Acetaminophen 325 Mg Tablet) 650 mg PO Q6H PRN PRN Reason: Headache/Pain Mild Scale (1-3) Last Admin: 09/24/22 21:56 Dose: 650 mg Al Hydroxide/Mg Hydroxide (Magnesium Hydrox/Alum Hydrox 30 Ml Oral.Susp) 30 ml PO Q6H PRN PRN Reason: Heartburn/Nausea Buspirone HCl (Buspirone Hcl 5 Mg Tablet) 15 mg PO BID [facility] Last Admin: 09/24/22 21:55 Dose: 15 mg Cyanocobalamin (Cyanocobalamin (Vitamin B-12) 1,000 Mcg Tablet) 1,000 mcg PO DAILY [facility] Last Admin: 09/24/22 08:12 Dose: 1,000 mcg Hydroxyzine HCl (Hydroxyzine Hcl 25 Mg Tablet) 25 mg PO Q6H PRN PRN Reason: Anxiety Last Admin: 09/24/22 22:32 Dose: 25 mg Loperamide HCl (Loperamide Hcl 2 Mg Capsule) 4 mg PO Q4H PRN PRN Reason: Diarrhea Magnesium Hydroxide (Milk Of Magnesia 30 Ml Oral.Susp) 30 ml PO DAILY PRN PRN Reason: Constipation Melatonin (Melatonin 3 Mg Tablet) 3 mg PO BEDTIME PRN PRN Reason: Sleep Last Admin: 09/19/22 23:17 Dose: 3 mg Mirtazapine (Mirtazapine 30 Mg Tablet) 30 mg PO BEDTIME [facility] Last Admin: 09/24/22 21:55 Dose: 30 mg Naltrexone HCl (Naltrexone Hcl 50 Mg Tablet) 50 mg PO DAILY [facility] Last Admin: 09/24/22 08:12 Dose: 50 mg Quetiapine Fumarate (Quetiapine Fumarate 400 Mg Tablet) 400 mg PO BEDTIME [facility] Last Admin: 09/24/22 21:56 Dose: 400 mg Quetiapine Fumarate (Quetiapine Fumarate 50 Mg Tablet) 50 mg PO DAILY [facility] Last Admin: 09/24/22 08:12 Dose: 50 mg Trazodone HCl (Trazodone Hcl 50 Mg Tablet) 50 mg PO BEDTIME MRX1 PRN PRN Reason: Insomnia Last Admin: 09/25/22 00:04 Dose: 50 mg Allergies Allergies Allergy/AdvReac Type Severity Reaction Status Date / Time codeine AdvReac Headache Verified 09/19/22 13:31 Assessment & Plan Assessment & Plan (1) Degenerative arthritis of lumbar spine: Status: Acute Code(s): M47.816 - Spondylosis without myelopathy or radiculopathy, lumbar region (2) Depressive disorder: Status: Acute Code(s): F32.A - Depression, unspecified (3) Alcohol use disorder: Status: Acute Code(s): F10.90 - Alcohol use, unspecified, uncomplicated Plan The patient is a middle-aged female with a prior history of alcohol use disorder not treated as per her report admitted for suicidal ideation, according to the crisis report she had several episodes in June that she tried to overdose in a suicidal attempts due to psychosocial stressors.? At this moment she is homeless, she has limited social support and she reported depression with suicidal ideation.? Plan 1. Gather collateral information.? 2. I offered naltrexone for alcohol use disorder the patient agreed.? 3. The patient reports depression and she agreed to start Remeron 15 mg p.o. q.h.s. to target depression and insomnia.? 4. Continue medical workout.? 5. . CIWA? and reassess in 72 hours to discontinue to avoid alcohol withdrawal symptoms.? CIWA discontinue to in September 20. 6. Reassessment results 7. Discharge planning to substance abuse program 8. Add Seroquel 50 mg at 7 pm. 09/24/2022 Continue plan of care discharge planning 09/25/2022 Patient appears generally stable complains of back pain restless leg Reason for contiued inpatient stay Substantial Risk for: inability to function and rapid decompensation Time Spent With Patient Time: Total time managing care of this patient today ____ minutes.
[2022-09-25] MEDS: Cyanocobalamin (Vitamin B-12) 1,000 MCG TABLET 1000 MCG PO (09:33)
[2022-09-25] MEDS: QUEtiapine Fumarate 50 MG TABLET PO (09:33)
[2022-09-25] MEDS: busPIRone HCl 5 MG TABLET 15 MG PO ×2 (09:33→20:25)
[2022-09-25] MEDS: Naltrexone HCl 50 MG TABLET PO (09:33)
[2022-09-25] MEDS: Acetaminophen 325 MG TABLET 650 MG PO ×2 (13:53→20:23)
[2022-09-25 18:00] VITALS: BP 179/74; PULSE 78; RESP 16; TEMP 36.2; O2SAT 98
[2022-09-25] MEDS: QUEtiapine Fumarate 400 MG TABLET PO (20:24)
[2022-09-25] MEDS: Gabapentin 100 MG CAPSULE 200 MG PO (20:24)
[2022-09-25] MEDS: Mirtazapine 30 MG TABLET PO (20:25)
[2022-09-25] MEDS: hydrOXYzine HCL 25 MG TABLET PO (22:36)
[2022-09-26] MEDS: Acetaminophen 325 MG TABLET 650 MG PO ×3 (04:25→18:31)
[2022-09-26] MEDS: hydrOXYzine HCL 25 MG TABLET PO (04:26)
[2022-09-26 06:00] VITALS: BP 169/88; PULSE 79; RESP 20; O2SAT 97
[2022-09-26] MEDS: Naltrexone HCl 50 MG TABLET PO (09:59)
[2022-09-26] MEDS: Cyanocobalamin (Vitamin B-12) 1,000 MCG TABLET 1000 MCG PO (09:59)
[2022-09-26] MEDS: busPIRone HCl 5 MG TABLET 15 MG PO ×2 (09:59→22:01)
[2022-09-26] MEDS: QUEtiapine Fumarate 50 MG TABLET PO (09:59)
[2022-09-26] MEDS: Gabapentin 100 MG CAPSULE 200 MG PO ×2 (15:19→22:02)
[2022-09-26 18:00] VITALS: BP 115/73; PULSE 77; RESP 18; TEMP 36.1; O2SAT 98
--- NOTE | 2022-09-26 21:43 | HO.PSYCHPN ---
Subjective Subjective Date of Service: 09/26/22 Reason For Visit: Suicidal ideation Subjective Notes: Conditional Voluntary Interim History: Patient more irritable and dysphoric complains of pain in back and pain in hands Medication Compliance: Yes Mental Status Exam Mental Status Exam Patient Appearance: Well Grooomed and Appropriate Patient Orientation: Person, Place, Time and Situation Level of Consciousness: Awake, Appropriate and Follows Commands Patient Behavior: Appropriate, Cooperative and Good Eye Contact Mood Description: Calm and Appropriate Affect Description: Calm and Appropriate Patient Cognition Impaired: No Ability to Follow Directions: Good Speech Pattern: Clear Hallucinations: None Delusions: Not Present Thought Process: Linear Thought Content: positive for [place] and positive for Circumstantial Judgement: Fair Diagnostics Vital Signs (24Hr): Vital Signs - 24 hr 09/26/22 06:00 Pulse Rate 79 Respiratory Rate 20 Blood Pressure 169/88 H Pulse Oximetry 97 Oxygen Delivery Method Room Air BMI result Body Mass Index 33.3 Labs 09/17/22 08:01 Medications Medications Current Medications Acetaminophen (Acetaminophen 325 Mg Tablet) 650 mg PO Q6H PRN PRN Reason: Headache/Pain Mild Scale (1-3) Last Admin: 09/26/22 18:31 Dose: 650 mg Al Hydroxide/Mg Hydroxide (Magnesium Hydrox/Alum Hydrox 30 Ml Oral.Susp) 30 ml PO Q6H PRN PRN Reason: Heartburn/Nausea Buspirone HCl (Buspirone Hcl 5 Mg Tablet) 15 mg PO BID [facility] Last Admin: 09/26/22 09:59 Dose: 15 mg Cyanocobalamin (Cyanocobalamin (Vitamin B-12) 1,000 Mcg Tablet) 1,000 mcg PO DAILY [facility] Last Admin: 09/26/22 09:59 Dose: 1,000 mcg Gabapentin (Gabapentin 100 Mg Capsule) 200 mg PO TID [facility] Last Admin: 09/26/22 15:19 Dose: 200 mg Hydroxyzine HCl (Hydroxyzine Hcl 25 Mg Tablet) 25 mg PO Q6H PRN PRN Reason: Anxiety Last Admin: 09/26/22 04:26 Dose: 25 mg Loperamide HCl (Loperamide Hcl 2 Mg Capsule) 4 mg PO Q4H PRN PRN Reason: Diarrhea Magnesium Hydroxide (Milk Of Magnesia 30 Ml Oral.Susp) 30 ml PO DAILY PRN PRN Reason: Constipation Melatonin (Melatonin 3 Mg Tablet) 3 mg PO BEDTIME PRN PRN Reason: Sleep Last Admin: 09/19/22 23:17 Dose: 3 mg Mirtazapine (Mirtazapine 30 Mg Tablet) 30 mg PO BEDTIME [facility] Last Admin: 09/25/22 20:25 Dose: 30 mg Naltrexone HCl (Naltrexone Hcl 50 Mg Tablet) 50 mg PO DAILY [facility] Last Admin: 09/26/22 09:59 Dose: 50 mg Quetiapine Fumarate (Quetiapine Fumarate 400 Mg Tablet) 400 mg PO BEDTIME [facility] Last Admin: 09/25/22 20:24 Dose: 400 mg Quetiapine Fumarate (Quetiapine Fumarate 50 Mg Tablet) 50 mg PO DAILY [facility] Last Admin: 09/26/22 09:59 Dose: 50 mg Trazodone HCl (Trazodone Hcl 50 Mg Tablet) 50 mg PO BEDTIME MRX1 PRN PRN Reason: Insomnia Last Admin: 09/25/22 22:35 Dose: 50 mg Allergies Allergies Allergy/AdvReac Type Severity Reaction Status Date / Time codeine AdvReac Headache Verified 09/19/22 13:31 Assessment & Plan Assessment & Plan (1) Degenerative arthritis of lumbar spine: Status: Acute Code(s): M47.816 - Spondylosis without myelopathy or radiculopathy, lumbar region (2) Depressive disorder: Status: Acute Code(s): F32.A - Depression, unspecified (3) Alcohol use disorder: Status: Acute Code(s): F10.90 - Alcohol use, unspecified, uncomplicated Plan The patient is a middle-aged female with a prior history of alcohol use disorder not treated as per her report admitted for suicidal ideation, according to the crisis report she had several episodes in June that she tried to overdose in a suicidal attempts due to psychosocial stressors.? At this moment she is homeless, she has limited social support and she reported depression with suicidal ideation.? Plan 1. Gather collateral information.? 2. I offered naltrexone for alcohol use disorder the patient agreed.? 3. The patient reports depression and she agreed to start Remeron 15 mg p.o. q.h.s. to target depression and insomnia.? 4. Continue medical workout.? 5. . CIWA? and reassess in 72 hours to discontinue to avoid alcohol withdrawal symptoms.? CIWA discontinue to in September 20. 6. Reassessment results 7. Discharge planning to substance abuse program 8. Add Seroquel 50 mg at 7 pm. 09/24/2022 Continue plan of care discharge planning 09/25/2022 Patient appears generally stable complains of back pain restless leg 09/26/2022 Patient more irritable and dysphoric Gabapentin 200 t.i.d. Patient educated on: diagnosis, medication risk/benefits and medical condition Informed Consent: understands Reason for contiued inpatient stay Substantial Risk for: harm to self, inability to function and rapid decompensation Time Spent With Patient Time: Total time managing care of this patient today ____ minutes.
[2022-09-26] MEDS: Mirtazapine 30 MG TABLET PO (22:02)
[2022-09-26] MEDS: QUEtiapine Fumarate 400 MG TABLET PO (22:02)
[2022-09-27] MEDS: hydrOXYzine HCL 25 MG TABLET PO (03:25)
[2022-09-27] MEDS: Acetaminophen 325 MG TABLET 650 MG PO ×2 (03:27→18:28)
[2022-09-27 06:00] VITALS: BP 138/68; PULSE 78; RESP 16
[2022-09-27] MEDS: Gabapentin 100 MG CAPSULE 200 MG PO ×3 (08:19→21:04)
[2022-09-27] MEDS: busPIRone HCl 5 MG TABLET 15 MG PO ×2 (08:19→21:04)
[2022-09-27] MEDS: Naltrexone HCl 50 MG TABLET PO (08:19)
[2022-09-27] MEDS: QUEtiapine Fumarate 50 MG TABLET PO (08:19)
[2022-09-27] MEDS: Cyanocobalamin (Vitamin B-12) 1,000 MCG TABLET 1000 MCG PO (08:19)
--- NOTE | 2022-09-27 09:09 | HO.PSYCHPN ---
Subjective Subjective Date of Service: 09/27/22 Reason For Visit: Suicidal ideation depression anxiety Interim History: Patient anxious room and focused on hand pain asking for gabapentin unclear secondary gain Medication Compliance: Yes Review of Systems Complains of hand pain Mental Status Exam Mental Status Exam Patient Appearance: Appropriate Level of Consciousness: Awake, Appropriate and Alert Patient Behavior: Appropriate, Talkative and Cooperative Mood Description: Relaxed Affect Description: Appropriate, Cheerful, Anxious and Apprehensive Speech Pattern: Clear Hallucinations: None Thought Content: positive for Preoccupation, negative for Suicidal Ideation or negative for Homicidal Ideation Depressive Symptoms: Increased Anxiety, Insomnia and Increased Irritability Diagnostics Vital Signs (24Hr): Vital Signs - 24 hr 09/26/22 18:00 Temperature 97 F Pulse Rate 77 Respiratory Rate 18 Blood Pressure 115/73 Pulse Oximetry 98 Oxygen Delivery Method Room Air BMI result Body Mass Index 33.3 Labs 09/17/22 08:01 Medications Medications Current Medications Acetaminophen (Acetaminophen 325 Mg Tablet) 650 mg PO Q6H PRN PRN Reason: Headache/Pain Mild Scale (1-3) Last Admin: 09/27/22 03:27 Dose: 650 mg Al Hydroxide/Mg Hydroxide (Magnesium Hydrox/Alum Hydrox 30 Ml Oral.Susp) 30 ml PO Q6H PRN PRN Reason: Heartburn/Nausea Buspirone HCl (Buspirone Hcl 5 Mg Tablet) 15 mg PO BID [facility] Last Admin: 09/27/22 08:19 Dose: 15 mg Cyanocobalamin (Cyanocobalamin (Vitamin B-12) 1,000 Mcg Tablet) 1,000 mcg PO DAILY [facility] Last Admin: 09/27/22 08:19 Dose: 1,000 mcg Gabapentin (Gabapentin 100 Mg Capsule) 200 mg PO TID [facility] Last Admin: 09/27/22 08:19 Dose: 200 mg Hydroxyzine HCl (Hydroxyzine Hcl 25 Mg Tablet) 25 mg PO Q6H PRN PRN Reason: Anxiety Last Admin: 09/27/22 03:25 Dose: 25 mg Loperamide HCl (Loperamide Hcl 2 Mg Capsule) 4 mg PO Q4H PRN PRN Reason: Diarrhea Magnesium Hydroxide (Milk Of Magnesia 30 Ml Oral.Susp) 30 ml PO DAILY PRN PRN Reason: Constipation Melatonin (Melatonin 3 Mg Tablet) 3 mg PO BEDTIME PRN PRN Reason: Sleep Last Admin: 09/19/22 23:17 Dose: 3 mg Mirtazapine (Mirtazapine 30 Mg Tablet) 30 mg PO BEDTIME [facility] Last Admin: 09/26/22 22:02 Dose: 30 mg Naltrexone HCl (Naltrexone Hcl 50 Mg Tablet) 50 mg PO DAILY [facility] Last Admin: 09/27/22 08:19 Dose: 50 mg Quetiapine Fumarate (Quetiapine Fumarate 400 Mg Tablet) 400 mg PO BEDTIME [facility] Last Admin: 09/26/22 22:02 Dose: 400 mg Quetiapine Fumarate (Quetiapine Fumarate 50 Mg Tablet) 50 mg PO DAILY [facility] Last Admin: 09/27/22 08:19 Dose: 50 mg Trazodone HCl (Trazodone Hcl 50 Mg Tablet) 50 mg PO BEDTIME MRX1 PRN PRN Reason: Insomnia Last Admin: 09/25/22 22:35 Dose: 50 mg Allergies Allergies Allergy/AdvReac Type Severity Reaction Status Date / Time codeine AdvReac Headache Verified 09/19/22 13:31 Assessment & Plan Assessment & Plan (1) Degenerative arthritis of lumbar spine: Status: Acute Code(s): M47.816 - Spondylosis without myelopathy or radiculopathy, lumbar region (2) Depressive disorder: Status: Acute Code(s): F32.A - Depression, unspecified (3) Alcohol use disorder: Status: Acute Code(s): F10.90 - Alcohol use, unspecified, uncomplicated Plan The patient is a middle-aged female with a prior history of alcohol use disorder not treated as per her report admitted for suicidal ideation, according to the crisis report she had several episodes in June that she tried to overdose in a suicidal attempts due to psychosocial stressors.? At this moment she is homeless, she has limited social support and she reported depression with suicidal ideation.? Plan 1. Gather collateral information.? 2. I offered naltrexone for alcohol use disorder the patient agreed.? 3. The patient reports depression and she agreed to start Remeron 15 mg p.o. q.h.s. to target depression and insomnia.? 4. Continue medical workout.? 5. . CIWA? and reassess in 72 hours to discontinue to avoid alcohol withdrawal symptoms.? CIWA discontinue to in September 20. 6. Reassessment results 7. Discharge planning to substance abuse program 8. Add Seroquel 50 mg at 7 pm. 09/24/2022 Continue plan of care discharge planning 09/25/2022 Patient appears generally stable complains of back pain restless leg 09/26/2022 Patient more irritable and dysphoric Gabapentin 200 t.i.d. 09/27/22 Continue discharge planning referral for substance abuse care no active self-harm started on gabapentin Reason for contiued inpatient stay Substantial Risk for: inability to function and rapid decompensation Time Spent With Patient Time: Total time managing care of this patient today ____ minutes.
[2022-09-27 18:00] VITALS: BP 175/77; PULSE 74; RESP 17; TEMP 35.7; O2SAT 99
[2022-09-27] MEDS: Mirtazapine 30 MG TABLET PO (21:05)
[2022-09-27] MEDS: QUEtiapine Fumarate 400 MG TABLET PO (22:53)
[2022-09-27] MEDS: traZODone HCL 50 MG TABLET PO (22:53)
[2022-09-28] MEDS: Acetaminophen 325 MG TABLET 650 MG PO ×2 (02:41→22:30)
[2022-09-28 07:30] VITALS: BP 180/79; PULSE 76; RESP 15; TEMP 36.6; O2SAT 100
[2022-09-28] MEDS: QUEtiapine Fumarate 50 MG TABLET PO (10:27)
[2022-09-28] MEDS: Cyanocobalamin (Vitamin B-12) 1,000 MCG TABLET 1000 MCG PO (10:27)
[2022-09-28] MEDS: Naltrexone HCl 50 MG TABLET PO (10:27)
[2022-09-28] MEDS: busPIRone HCl 5 MG TABLET 15 MG PO ×2 (10:27→19:47)
[2022-09-28] MEDS: Gabapentin 400 MG CAPSULE PO ×2 (15:28→19:47)
[2022-09-28 18:00] VITALS: BP 170/74; PULSE 74; RESP 17; TEMP 36.5; O2SAT 98
[2022-09-28] MEDS: Mirtazapine 30 MG TABLET PO (19:47)
[2022-09-28] MEDS: QUEtiapine Fumarate 400 MG TABLET PO (22:30)
--- NOTE | 2022-09-28 22:47 | P.PNPSI_ITS ---
Subjective Subjective Date of Service: 09/28/22 Reason For Visit: Suicidal ideation depression anxiety Healthcare Proxy: No Guardianship: No Mental Status Exam Mental Status Exam Patient Appearance: Appropriate Level of Consciousness: Awake, Appropriate and Alert Patient Behavior: Appropriate, Talkative and Cooperative Mood Description: Relaxed Affect Description: Appropriate and Cheerful Speech Pattern: Clear Hallucinations: None Delusions: Not Present Thought Process: Rumination and Linear Depressive Symptoms: Increased Anxiety, Insomnia and Increased Irritability Judgement: Fair Diagnostics Vital Signs (24Hr): Vital Signs - 24 hr 09/29/22 07:30 09/29/22 18:00 Temperature 97.6 F 97.9 F Pulse Rate 81 93 Respiratory Rate 15 16 Blood Pressure 121/56 L 144/64 H Pulse Oximetry 95 98 Oxygen Delivery Method Room Air Room Air BMI result Body Mass Index 33.3 Labs 09/17/22 08:01 Medications Medications Current Medications Acetaminophen (Acetaminophen 325 Mg Tablet) 650 mg PO Q6H PRN PRN Reason: Headache/Pain Mild Scale (1-3) Last Admin: 09/29/22 16:41 Dose: 650 mg Al Hydroxide/Mg Hydroxide (Magnesium Hydrox/Alum Hydrox 30 Ml Oral.Susp) 30 ml PO Q6H PRN PRN Reason: Heartburn/Nausea Buspirone HCl (Buspirone Hcl 5 Mg Tablet) 15 mg PO BID [facility] Last Admin: 09/29/22 20:06 Dose: 15 mg Cyanocobalamin (Cyanocobalamin (Vitamin B-12) 1,000 Mcg Tablet) 1,000 mcg PO DAILY [facility] Last Admin: 09/29/22 09:57 Dose: 1,000 mcg Gabapentin (Gabapentin 300 Mg Capsule) 300 mg PO QID [facility] Last Admin: 09/29/22 20:06 Dose: 300 mg Hydroxyzine HCl (Hydroxyzine Hcl 25 Mg Tablet) 25 mg PO Q6H PRN PRN Reason: Anxiety Last Admin: 09/27/22 03:25 Dose: 25 mg Loperamide HCl (Loperamide Hcl 2 Mg Capsule) 4 mg PO Q4H PRN PRN Reason: Diarrhea Magnesium Hydroxide (Milk Of Magnesia 30 Ml Oral.Susp) 30 ml PO DAILY PRN PRN Reason: Constipation Melatonin (Melatonin 3 Mg Tablet) 3 mg PO BEDTIME PRN PRN Reason: Sleep Last Admin: 09/19/22 23:17 Dose: 3 mg Mirtazapine (Mirtazapine 30 Mg Tablet) 30 mg PO BEDTIME [facility] Last Admin: 09/28/22 19:47 Dose: 30 mg Naltrexone HCl (Naltrexone Hcl 50 Mg Tablet) 50 mg PO DAILY [facility] Last Admin: 09/29/22 09:57 Dose: 50 mg Quetiapine Fumarate (Quetiapine Fumarate 400 Mg Tablet) 400 mg PO BEDTIME [facility] Last Admin: 09/28/22 22:30 Dose: 400 mg Quetiapine Fumarate (Quetiapine Fumarate 50 Mg Tablet) 50 mg PO DAILY [facility] Last Admin: 09/29/22 09:57 Dose: 50 mg Trazodone HCl (Trazodone Hcl 50 Mg Tablet) 50 mg PO BEDTIME MRX1 PRN PRN Reason: Insomnia Last Admin: 09/29/22 02:25 Dose: 50 mg Allergies Allergies Allergy/AdvReac Type Severity Reaction Status Date / Time codeine AdvReac Headache Verified 09/19/22 13:31 Assessment & Plan Assessment & Plan (1) Degenerative arthritis of lumbar spine: Status: Acute Code(s): M47.816 - Spondylosis without myelopathy or radiculopathy, lumbar region (2) Depressive disorder: Status: Acute Code(s): F32.A - Depression, unspecified (3) Alcohol use disorder: Status: Acute Code(s): F10.90 - Alcohol use, unspecified, uncomplicated Plan The patient is a middle-aged female with a prior history of alcohol use disorder not treated as per her report admitted for suicidal ideation, according to the crisis report she had several episodes in June that she tried to overdose in a suicidal attempts due to psychosocial stressors.? At this moment she is homeless, she has limited social support and she reported depression with suicidal ideation.? Plan 1. Gather collateral information.? 2. I offered naltrexone for alcohol use disorder the patient agreed.? 3. The patient reports depression and she agreed to start Remeron 15 mg p.o. q.h.s. to target depression and insomnia.? 4. Continue medical workout.? 5. . CIWA? and reassess in 72 hours to discontinue to avoid alcohol withdrawal symptoms.? CIWA discontinue to in September 20. 6. Reassessment results 7. Discharge planning to substance abuse program 8. Add Seroquel 50 mg at 7 pm. 09/24/2022 Continue plan of care discharge planning 09/25/2022 Patient appears generally stable complains of back pain restless leg 09/26/2022 Patient more irritable and dysphoric Gabapentin 200 t.i.d. 09/27/22 Continue discharge planning referral for substance abuse care no active self- harm started on gabapentin [id number] Referral for addiction treatment gabapentin for pain and cravings continue BuSpar Reason for contiued inpatient stay Substantial Risk for: inability to function and rapid decompensation Time Spent With Patient Time: Total time managing care of this patient today ____ minutes.
[2022-09-29] MEDS: traZODone HCL 50 MG TABLET PO ×2 (02:25→23:51)
[2022-09-29 07:30] VITALS: BP 121/56; PULSE 81; RESP 15; TEMP 36.4; O2SAT 95
[2022-09-29] MEDS: busPIRone HCl 5 MG TABLET 15 MG PO ×2 (09:57→20:06)
[2022-09-29] MEDS: Naltrexone HCl 50 MG TABLET PO (09:57)
[2022-09-29] MEDS: Gabapentin 400 MG CAPSULE PO ×2 (09:57→14:40)
[2022-09-29] MEDS: QUEtiapine Fumarate 50 MG TABLET PO (09:57)
[2022-09-29] MEDS: Cyanocobalamin (Vitamin B-12) 1,000 MCG TABLET 1000 MCG PO (09:57)
--- NOTE | 2022-09-29 12:56 | HO.ADDICT_ITS ---
History of Present Illness Date of Service: 09/29/2022 Chief Complaint: Suicidal ideation Reason for Consult: alcohol use disorder HPI Narrative: Patient is a 66 year old female with alcohol use disorder currently admitted to unit with depression and suicidal ideation. Recently started on Naltrexone during this admission and denies any side effects. She denies any thoughts of drinking and is pleasantly surprised by this. She reports she was drinking 3 natty daddys every day for quite some time. Denies any history of treatment for AUD, however vary familiar with the community as she used to attend meetings with her father growing up. She identified some friends as her main supports, but her closest friend is a heavy drinker as well Reviewed building recovery supports and continuation of medication at discharge--patient reports her PCP will continue Naltrexone Discussed recovery centers, patient unfamiliar with these, and would like more information on any sites that are near her in [place]. Past Psychiatric History: The patient denies prior psychiatric admissions but apparently she had several visits and assessments by the crisis team. She denies prior substance abuse treatment or psychiatric treatment. Review of Systems Constitutional: Reports as per HPI and Reports no additional constitutional complaints Diagnostics Vital Signs (24Hr): Vital Signs - 24 hr 09/28/22 18:00 09/29/22 07:30 Temperature 97.7 F 97.6 F Pulse Rate 74 81 Respiratory Rate 17 15 Blood Pressure 170/74 H 121/56 L Pulse Oximetry 98 95 Oxygen Delivery Method Room Air Room Air BMI result Body Mass Index 33.3 Labs 09/17/22 08:01 Mental Status Exam Mental Status Exam Patient Appearance: Appropriate Level of Consciousness: Awake, Appropriate and Alert Patient Behavior: Appropriate, Talkative and Cooperative Mood Description: Relaxed Affect Description: Appropriate and Cheerful Speech Pattern: Clear Medications Medications Current Medications Acetaminophen (Acetaminophen 325 Mg Tablet) 650 mg PO Q6H PRN PRN Reason: Headache/Pain Mild Scale (1-3) Last Admin: 09/28/22 22:30 Dose: 650 mg Al Hydroxide/Mg Hydroxide (Magnesium Hydrox/Alum Hydrox 30 Ml Oral.Susp) 30 ml PO Q6H PRN PRN Reason: Heartburn/Nausea Buspirone HCl (Buspirone Hcl 5 Mg Tablet) 15 mg PO BID [facility] Last Admin: 09/29/22 09:57 Dose: 15 mg Cyanocobalamin (Cyanocobalamin (Vitamin B-12) 1,000 Mcg Tablet) 1,000 mcg PO DAILY [facility] Last Admin: 09/29/22 09:57 Dose: 1,000 mcg Gabapentin (Gabapentin 400 Mg Capsule) 400 mg PO TID [facility] Last Admin: 09/29/22 09:57 Dose: 400 mg Hydroxyzine HCl (Hydroxyzine Hcl 25 Mg Tablet) 25 mg PO Q6H PRN PRN Reason: Anxiety Last Admin: 09/27/22 03:25 Dose: 25 mg Loperamide HCl (Loperamide Hcl 2 Mg Capsule) 4 mg PO Q4H PRN PRN Reason: Diarrhea Magnesium Hydroxide (Milk Of Magnesia 30 Ml Oral.Susp) 30 ml PO DAILY PRN PRN Reason: Constipation Melatonin (Melatonin 3 Mg Tablet) 3 mg PO BEDTIME PRN PRN Reason: Sleep Last Admin: 09/19/22 23:17 Dose: 3 mg Mirtazapine (Mirtazapine 30 Mg Tablet) 30 mg PO BEDTIME [facility] Last Admin: 09/28/22 19:47 Dose: 30 mg Naltrexone HCl (Naltrexone Hcl 50 Mg Tablet) 50 mg PO DAILY [facility] Last Admin: 09/29/22 09:57 Dose: 50 mg Quetiapine Fumarate (Quetiapine Fumarate 400 Mg Tablet) 400 mg PO BEDTIME [facility] Last Admin: 09/28/22 22:30 Dose: 400 mg Quetiapine Fumarate (Quetiapine Fumarate 50 Mg Tablet) 50 mg PO DAILY [facility] Last Admin: 09/29/22 09:57 Dose: 50 mg Trazodone HCl (Trazodone Hcl 50 Mg Tablet) 50 mg PO BEDTIME MRX1 PRN PRN Reason: Insomnia Last Admin: 09/29/22 02:25 Dose: 50 mg Allergies Allergies Allergy/AdvReac Type Severity Reaction Status Date / Time codeine AdvReac Headache Verified 09/19/22 13:31 Assessment & Plan Assessment & Plan (1) Alcohol use disorder: Status: Acute Code(s): F10.90 - Alcohol use, unspecified, uncomplicated Assessment and Plan: * tolerating naltrexone * will provide Recovery Center information for Ed Total time managing care of this patient today __35__ minutes. PMFSH Social History Social History Household Members: None Housing: Homeless Do you presently have visiting nurse or other home services: No Patient Tobacco Use Status: Former Tobacco user Smoked in Last 30 Days: No Patient Interested in Nicotine Replacement: No Patient Given Instructions on How to Stop Smoking: No Second Hand Smoke Exposure: No Use of substances other than those prescribed or required for medical reasons: No Currently Displaying Signs/Symptoms of Drug Intoxication Withdrawal: No Have you been hit, kicked, punched, or otherwise hurt by someone within the past year? If so, by whom?: No Do you feel safe in your current relationship?: No Current Relationship Is there a partner from a previous relationship who is making you feel unsafe now?: No Are you made to feel afraid or neglected: No Spiritual Healthcare Practices: Patient denies Islam Healthcare Practices: Patient denies Cultural Healthcare Practices: Patient denies Advance Directives: No Advance Directives Information Provided: No Do you have thoughts of harming others: None Do you have a plan to hurt others: No Plan Recently lost weight without trying: No Eating poorly because of decreased appetite: No Nutrition Risks: No Nutritional Risk Patient : No : No Poor oral hygiene: No service: No Sexual orientation: Straight/Heterosexual
[2022-09-29] MEDS: Acetaminophen 325 MG TABLET 650 MG PO (16:41)
[2022-09-29 18:00] VITALS: BP 144/64; PULSE 93; RESP 16; TEMP 36.6; O2SAT 98
[2022-09-29] MEDS: Gabapentin 300 MG CAPSULE PO (20:06)
--- NOTE | 2022-09-29 22:51 | HO.PSYCHPN ---
Subjective Subjective Date of Service: 09/29/22 Reason For Visit: Suicidal ideation depression anxiety Subjective Notes: Conditional Voluntary Mental Status Exam Mental Status Exam Patient Appearance: Appropriate Level of Consciousness: Awake, Appropriate and Alert Patient Behavior: Appropriate, Talkative and Cooperative Mood Description: Relaxed, Anxious and Apprehensive Affect Description: Appropriate and Cheerful Speech Pattern: Clear Hallucinations: None Delusions: Not Present Thought Process: Rumination and Linear Depressive Symptoms: Increased Anxiety, Insomnia and Increased Irritability Judgement: Fair Diagnostics Vital Signs (24Hr): Vital Signs - 24 hr 09/29/22 07:30 09/29/22 18:00 Temperature 97.6 F 97.9 F Pulse Rate 81 93 Respiratory Rate 15 16 Blood Pressure 121/56 L 144/64 H Pulse Oximetry 95 98 Oxygen Delivery Method Room Air Room Air BMI result Body Mass Index 33.3 Labs 09/17/22 08:01 Medications Medications Current Medications Acetaminophen (Acetaminophen 325 Mg Tablet) 650 mg PO Q6H PRN PRN Reason: Headache/Pain Mild Scale (1-3) Last Admin: 09/29/22 16:41 Dose: 650 mg Al Hydroxide/Mg Hydroxide (Magnesium Hydrox/Alum Hydrox 30 Ml Oral.Susp) 30 ml PO Q6H PRN PRN Reason: Heartburn/Nausea Buspirone HCl (Buspirone Hcl 5 Mg Tablet) 15 mg PO BID [facility] Last Admin: 09/29/22 20:06 Dose: 15 mg Cyanocobalamin (Cyanocobalamin (Vitamin B-12) 1,000 Mcg Tablet) 1,000 mcg PO DAILY [facility] Last Admin: 09/29/22 09:57 Dose: 1,000 mcg Gabapentin (Gabapentin 300 Mg Capsule) 300 mg PO QID [facility] Last Admin: 09/29/22 20:06 Dose: 300 mg Hydroxyzine HCl (Hydroxyzine Hcl 25 Mg Tablet) 25 mg PO Q6H PRN PRN Reason: Anxiety Last Admin: 09/27/22 03:25 Dose: 25 mg Loperamide HCl (Loperamide Hcl 2 Mg Capsule) 4 mg PO Q4H PRN PRN Reason: Diarrhea Magnesium Hydroxide (Milk Of Magnesia 30 Ml Oral.Susp) 30 ml PO DAILY PRN PRN Reason: Constipation Melatonin (Melatonin 3 Mg Tablet) 3 mg PO BEDTIME PRN PRN Reason: Sleep Last Admin: 09/19/22 23:17 Dose: 3 mg Mirtazapine (Mirtazapine 30 Mg Tablet) 30 mg PO BEDTIME [facility] Last Admin: 09/28/22 19:47 Dose: 30 mg Naltrexone HCl (Naltrexone Hcl 50 Mg Tablet) 50 mg PO DAILY [facility] Last Admin: 09/29/22 09:57 Dose: 50 mg Quetiapine Fumarate (Quetiapine Fumarate 400 Mg Tablet) 400 mg PO BEDTIME [facility] Last Admin: 09/28/22 22:30 Dose: 400 mg Quetiapine Fumarate (Quetiapine Fumarate 50 Mg Tablet) 50 mg PO DAILY [facility] Last Admin: 09/29/22 09:57 Dose: 50 mg Trazodone HCl (Trazodone Hcl 50 Mg Tablet) 50 mg PO BEDTIME MRX1 PRN PRN Reason: Insomnia Last Admin: 09/29/22 02:25 Dose: 50 mg Allergies Allergies Allergy/AdvReac Type Severity Reaction Status Date / Time codeine AdvReac Headache Verified 09/19/22 13:31 Assessment & Plan Assessment & Plan (1) Degenerative arthritis of lumbar spine: Status: Acute Code(s): M47.816 - Spondylosis without myelopathy or radiculopathy, lumbar region (2) Depressive disorder: Status: Acute Code(s): F32.A - Depression, unspecified (3) Alcohol use disorder: Status: Acute Code(s): F10.90 - Alcohol use, unspecified, uncomplicated Plan The patient is a middle-aged female with a prior history of alcohol use disorder not treated as per her report admitted for suicidal ideation, according to the crisis report she had several episodes in June that she tried to overdose in a suicidal attempts due to psychosocial stressors.? At this moment she is homeless, she has limited social support and she reported depression with suicidal ideation.? Plan 1. Gather collateral information.? 2. I offered naltrexone for alcohol use disorder the patient agreed.? 3. The patient reports depression and she agreed to start Remeron 15 mg p.o. q.h.s. to target depression and insomnia.? 4. Continue medical workout.? 5. . CIWA? and reassess in 72 hours to discontinue to avoid alcohol withdrawal symptoms.? CIWA discontinue to in September 20. 6. Reassessment results 7. Discharge planning to substance abuse program 8. Add Seroquel 50 mg at 7 pm. 09/24/2022 Continue plan of care discharge planning 09/25/2022 Patient appears generally stable complains of back pain restless leg 09/26/2022 Patient more irritable and dysphoric Gabapentin 200 t.i.d. 09/27/22 Continue discharge planning referral for substance abuse care no active self-harm started on gabapentin [id number] Referral for addiction treatment gabapentin for pain and cravings continue BuSpar seroquel mirtazapine 09/29/22 Pt anxious ruminating depressed change gabapentin 300 qid Reason for contiued inpatient stay Substantial Risk for: inability to function, rapid decompensation and med/psych decompensation Time Spent With Patient Time: Total time managing care of this patient today ____ minutes.
[2022-09-29] MEDS: QUEtiapine Fumarate 400 MG TABLET PO (22:59)
[2022-09-29] MEDS: Mirtazapine 30 MG TABLET PO (22:59)
[2022-09-29] MEDS: hydrOXYzine HCL 25 MG TABLET PO (23:51)
[2022-09-30] MEDS: Melatonin 3 MG TABLET PO (02:39)
[2022-09-30] MEDS: Acetaminophen 325 MG TABLET 650 MG PO ×2 (02:40→20:41)
[2022-09-30] MEDS: traZODone HCL 50 MG TABLET PO (02:40)
[2022-09-30 07:30] VITALS: BP 137/60; PULSE 78; RESP 16; TEMP 36.8; O2SAT 95
[2022-09-30] MEDS: Gabapentin 300 MG CAPSULE PO ×4 (10:05→20:41)
[2022-09-30] MEDS: QUEtiapine Fumarate 50 MG TABLET PO (10:05)
[2022-09-30] MEDS: Cyanocobalamin (Vitamin B-12) 1,000 MCG TABLET 1000 MCG PO (10:05)
[2022-09-30] MEDS: Naltrexone HCl 50 MG TABLET PO (10:05)
[2022-09-30] MEDS: busPIRone HCl 5 MG TABLET 15 MG PO ×2 (10:05→20:41)
--- NOTE | 2022-09-30 12:57 | PM.NEUROCN ---
History of Present Illness Data of Consult Service Date: 09/30/22 Primary Care Provider: Naheed Maurer NP HPI Reason for consult: Hand pain Pt is a 66-year-old female with a PMH significant for MDD, anxiety, alcohol dependence, and degenerative arthritis of the lumbar spine who is seen for admission history and physical to the geripsych unit. Pt complains of chronic back pain Who fell about 8 days ago here in the put her hand out on a hot stove and then had a blister which has since healed. She has local pain in the hyperthenar eminence since then. She is now complaining of some numbness in the little finger. Review of Systems Review of Systems: Negative except for that which is stated in the HPI Yes all other systems are reviewed and are negative Constitutional: Constitutional: Reports as per HPI and Reports no additional constitutional complaints PMFSH Social History Social History Household Members: None Housing: Homeless Do you presently have visiting nurse or other home services: No Patient Tobacco Use Status: Former Tobacco user Second Hand Smoke Exposure: No service: No Sexual orientation: Straight/Heterosexual Meds Allergies Allergy/AdvReac Type Severity Reaction Status Date / Time codeine AdvReac Headache Verified 09/19/22 13:31 Active Medications: Current Medications Acetaminophen (Acetaminophen 325 Mg Tablet) 650 mg PO Q6H PRN PRN Reason: Headache/Pain Mild Scale (1-3) Last Admin: 09/30/22 02:40 Dose: 650 mg Al Hydroxide/Mg Hydroxide (Magnesium Hydrox/Alum Hydrox 30 Ml Oral.Susp) 30 ml PO Q6H PRN PRN Reason: Heartburn/Nausea Buspirone HCl (Buspirone Hcl 5 Mg Tablet) 15 mg PO BID [facility]S [facility]CLUDE 234 BEDS AT [facility] Last Admin: 09/30/22 10:05 Dose: 15 mg Cyanocobalamin (Cyanocobalamin (Vitamin B-12) 1,000 Mcg Tablet) 1,000 mcg PO DAILY [facility] 234 BEDS AT [facility] Last Admin: 09/30/22 10:05 Dose: 1,000 mcg Gabapentin (Gabapentin 300 Mg Capsule) 300 mg PO QID [facility]S [facility]CLUDE 234 BEDS AT THE [facility] Last Admin: 09/30/22 12:27 Dose: 300 mg Hydroxyzine HCl (Hydroxyzine Hcl 25 Mg Tablet) 25 mg PO Q6H PRN PRN Reason: Anxiety Last Admin: 09/29/22 23:51 Dose: 25 mg Loperamide HCl (Loperamide Hcl 2 Mg Capsule) 4 mg PO Q4H PRN PRN Reason: Diarrhea Magnesium Hydroxide (Milk Of Magnesia 30 Ml Oral.Susp) 30 ml PO DAILY PRN PRN Reason: Constipation Melatonin (Melatonin 3 Mg Tablet) 3 mg PO BEDTIME PRN PRN Reason: Sleep Last Admin: 09/30/22 02:39 Dose: 3 mg Mirtazapine (Mirtazapine 30 Mg Tablet) 30 mg PO BEDTIME [facility]S [facility]CLUDE 234 BEDS AT [facility] Last Admin: 09/29/22 22:59 Dose: 30 mg Naltrexone HCl (Naltrexone Hcl 50 Mg Tablet) 50 mg PO DAILY [facility] 234 BEDS AT [facility] Last Admin: 09/30/22 10:05 Dose: 50 mg Quetiapine Fumarate (Quetiapine Fumarate 400 Mg Tablet) 400 mg PO BEDTIME [facility]S [facility]CLUDE 234 BEDS AT THE [facility] Last Admin: 09/29/22 22:59 Dose: 400 mg Quetiapine Fumarate (Quetiapine Fumarate 50 Mg Tablet) 50 mg PO DAILY [facility]S [facility]CLUDE 234 BEDS AT [facility] Last Admin: 09/30/22 10:05 Dose: 50 mg Trazodone HCl (Trazodone Hcl 50 Mg Tablet) 50 mg PO BEDTIME MRX1 PRN PRN Reason: Insomnia Last Admin: 09/30/22 02:40 Dose: 50 mg Physical Exam Vital Signs: Vital Signs: Last Vital Signs Temp 98.2 F 09/30/22 07:30 Pulse 78 09/30/22 07:30 Resp 16 09/30/22 07:30 BP 137/60 09/30/22 07:30 Pulse Ox 95 09/30/22 07:30 O2 Del Method 09/30/22 07:30 BMI result Body Mass Index 33.3 Neuro: Other: Some decreased sensation in the fifth finger and minimal weakness of finger spread otherwise normal neurological examination Results Labs 09/17/22 08:01 Assessment and Plan (1) Degenerative arthritis of lumbar spine: Status: Acute (2) Depressive disorder: Status: Acute (3) Alcohol use disorder: Status: Acute (4) Hand pain: Status: Acute Appears to be related to recent trauma with burn of the hyperthenar eminence. Some numbness in the fifth finger that may suggest early ulnar nerve entrapment. For the moment the patient is not in any significant pain. The pain increases gabapentin 300 mg at bedtime can be added. If the numbness persists after a couple of months, nerve conduction study can be done. Plan The patient is a middle-aged female with a prior history of alcohol use disorder not treated as per her report admitted for suicidal ideation, according to the crisis report she had several episodes in June that she tried to overdose in a suicidal attempts due to psychosocial stressors.? At this moment she is homeless, she has limited social support and she reported depression with suicidal ideation.? Plan 1. Gather collateral information.? 2. I offered naltrexone for alcohol use disorder the patient agreed.? 3. The patient reports depression and she agreed to start Remeron 15 mg p.o. q.h.s. to target depression and insomnia.? 4. Continue medical workout.? 5. . CIWA? and reassess in 72 hours to discontinue to avoid alcohol withdrawal symptoms.? CIWA discontinue to in September 20. 6. Reassessment results 7. Discharge planning to substance abuse program 8. Add Seroquel 50 mg at 7 pm. 09/24/2022 Continue plan of care discharge planning 09/25/2022 Patient appears generally stable complains of back pain restless leg 09/26/2022 Patient more irritable and dysphoric Gabapentin 200 t.i.d. 09/27/22 Continue discharge planning referral for substance abuse care no active self-harm started on gabapentin [id number] Referral for addiction treatment gabapentin for pain and cravings continue BuSpar seroquel mirtazapine 09/29/22 Pt anxious ruminating depressed change gabapentin 300 qid Time Spent With Patient Time: Total time managing care of this patient today ____ minutes. Procedures Date of Service Date of Service: 09/29/22
[2022-09-30] MEDS: hydrOXYzine HCL 25 MG TABLET PO (14:07)
--- NOTE | 2022-09-30 16:01 | HO.PSYCHPN ---
Subjective Subjective Date of Service: 09/30/22 Reason For Visit: Suicidal ideation depression anxiety Subjective Notes: Conditional Voluntary Interim History: Patient continues to have a lot of anxiety and rumination worried about her future where she is going to live has limited coping skills she was sober in the past for number of years Medication Compliance: Yes Mental Status Exam Mental Status Exam Patient Appearance: Appropriate Level of Consciousness: Awake, Appropriate and Alert Patient Behavior: Appropriate, Talkative and Cooperative Mood Description: Relaxed, Anxious and Apprehensive Affect Description: Appropriate and Apprehensive Speech Pattern: Clear Hallucinations: None Delusions: Not Present Thought Process: Rumination and Linear Depressive Symptoms: Increased Anxiety, Insomnia and Increased Irritability Judgement: Fair Diagnostics Vital Signs (24Hr): Vital Signs - 24 hr 09/29/22 18:00 09/30/22 07:30 Temperature 97.9 F 98.2 F Pulse Rate 93 78 Respiratory Rate 16 16 Blood Pressure 144/64 H 137/60 Pulse Oximetry 98 95 Oxygen Delivery Method Room Air Room Air BMI result Body Mass Index 33.3 Labs 09/17/22 08:01 Medications Medications Current Medications Acetaminophen (Acetaminophen 325 Mg Tablet) 650 mg PO Q6H PRN PRN Reason: Headache/Pain Mild Scale (1-3) Last Admin: 09/30/22 02:40 Dose: 650 mg Al Hydroxide/Mg Hydroxide (Magnesium Hydrox/Alum Hydrox 30 Ml Oral.Susp) 30 ml PO Q6H PRN PRN Reason: Heartburn/Nausea Buspirone HCl (Buspirone Hcl 5 Mg Tablet) 15 mg PO BID [facility] Last Admin: 09/30/22 10:05 Dose: 15 mg Cyanocobalamin (Cyanocobalamin (Vitamin B-12) 1,000 Mcg Tablet) 1,000 mcg PO DAILY [facility] Last Admin: 09/30/22 10:05 Dose: 1,000 mcg Gabapentin (Gabapentin 300 Mg Capsule) 300 mg PO QID [facility] Last Admin: 09/30/22 12:27 Dose: 300 mg Hydroxyzine HCl (Hydroxyzine Hcl 25 Mg Tablet) 25 mg PO Q6H PRN PRN Reason: Anxiety Last Admin: 09/30/22 14:07 Dose: 25 mg Loperamide HCl (Loperamide Hcl 2 Mg Capsule) 4 mg PO Q4H PRN PRN Reason: Diarrhea Magnesium Hydroxide (Milk Of Magnesia 30 Ml Oral.Susp) 30 ml PO DAILY PRN PRN Reason: Constipation Melatonin (Melatonin 3 Mg Tablet) 3 mg PO BEDTIME PRN PRN Reason: Sleep Last Admin: 09/30/22 02:39 Dose: 3 mg Mirtazapine (Mirtazapine 30 Mg Tablet) 30 mg PO BEDTIME [facility] Last Admin: 09/29/22 22:59 Dose: 30 mg Naltrexone HCl (Naltrexone Hcl 50 Mg Tablet) 50 mg PO DAILY [facility] Last Admin: 09/30/22 10:05 Dose: 50 mg Quetiapine Fumarate (Quetiapine Fumarate 400 Mg Tablet) 400 mg PO BEDTIME [facility] Last Admin: 09/29/22 22:59 Dose: 400 mg Quetiapine Fumarate (Quetiapine Fumarate 50 Mg Tablet) 50 mg PO DAILY [facility] Last Admin: 09/30/22 10:05 Dose: 50 mg Trazodone HCl (Trazodone Hcl 50 Mg Tablet) 50 mg PO BEDTIME MRX1 PRN PRN Reason: Insomnia Last Admin: 09/30/22 02:40 Dose: 50 mg Allergies Allergies Allergy/AdvReac Type Severity Reaction Status Date / Time codeine AdvReac Headache Verified 09/19/22 13:31 Assessment & Plan Assessment & Plan (1) Degenerative arthritis of lumbar spine: Status: Acute Code(s): M47.816 - Spondylosis without myelopathy or radiculopathy, lumbar region (2) Depressive disorder: Status: Acute Code(s): F32.A - Depression, unspecified (3) Alcohol use disorder: Status: Acute Code(s): F10.90 - Alcohol use, unspecified, uncomplicated Plan The patient is a middle-aged female with a prior history of alcohol use disorder not treated as per her report admitted for suicidal ideation, according to the crisis report she had several episodes in June that she tried to overdose in a suicidal attempts due to psychosocial stressors.? At this moment she is homeless, she has limited social support and she reported depression with suicidal ideation.? Plan 1. Gather collateral information.? 2. I offered naltrexone for alcohol use disorder the patient agreed.? 3. The patient reports depression and she agreed to start Remeron 15 mg p.o. q.h.s. to target depression and insomnia.? 4. Continue medical workout.? 5. . CIWA? and reassess in 72 hours to discontinue to avoid alcohol withdrawal symptoms.? CIWA discontinue to in September 20. 6. Reassessment results 7. Discharge planning to substance abuse program 8. Add Seroquel 50 mg at 7 pm. 09/24/2022 Continue plan of care discharge planning 09/25/2022 Patient appears generally stable complains of back pain restless leg 09/26/2022 Patient more irritable and dysphoric Gabapentin 200 t.i.d. 09/27/22 Continue discharge planning referral for substance abuse care no active self-harm started on gabapentin 3723 Referral for addiction treatment gabapentin for pain and cravings continue BuSpar seroquel mirtazapine 09/29/22 Pt anxious ruminating depressed change gabapentin 300 qid 09/30/2022 Patient anxious about potential discharge where she is going to live gabapentin increased continue mirtazapine Seroquel discharge planning Patient educated on: diagnosis Informed Consent: understands Reason for contiued inpatient stay Substantial Risk for: inability to function and rapid decompensation Time Spent With Patient Time: Total time managing care of this patient today ____ minutes.
[2022-09-30 18:00] VITALS: BP 156/72; PULSE 76; RESP 18; TEMP 36.4; O2SAT 100
[2022-09-30] MEDS: QUEtiapine Fumarate 400 MG TABLET PO (23:06)
[2022-09-30] MEDS: Mirtazapine 30 MG TABLET PO (23:06)
[2022-10-01 08:00] VITALS: BP 158/22; PULSE 78; RESP 16; TEMP 36.4; O2SAT 96
[2022-10-01] MEDS: Naltrexone HCl 50 MG TABLET PO (08:09)
[2022-10-01] MEDS: QUEtiapine Fumarate 50 MG TABLET PO (08:09)
[2022-10-01] MEDS: Gabapentin 300 MG CAPSULE PO ×2 (08:10→12:55)
[2022-10-01] MEDS: busPIRone HCl 5 MG TABLET 15 MG PO (08:10)
[2022-10-01] MEDS: Cyanocobalamin (Vitamin B-12) 1,000 MCG TABLET 1000 MCG PO (08:10)
[2022-10-01] MEDS: QUEtiapine Fumarate 25 MG TABLET PO (11:50)
[2022-10-01] MEDS: hydrOXYzine HCL 25 MG TABLET PO (11:50)
[2022-10-01 12:08] LABS: COVID-19 Test Negative (Negative); IDNOW Serial# 55D5AD1C
--- NOTE | 2022-10-01 17:15 | P.DS_ITS ---
DS: Providers Provider Date of Service: 10/01/22 Date of admission: 09/16/22 17:35 Primary care physician: Naheed Maurer NP Consults: 09/16/22 10:58 Consult to Hospitalist Routine Consulting Provider: Hospitalist Reason For Exam: direct admission 09/28/22 09:03 Consult to Neurology Routine Consulting Provider: [facility] Reason for consultation: ? 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 Has provider been notified: No 09/29/22 17:44 Consult to Hospitalist Routine Consulting Provider: Hospitalist Reason For Exam: c/o hand pain any recommendationss/p injury DS: Diagnosis Discharge Diagnosis (1) Degenerative arthritis of lumbar spine: Status: Acute (2) Depressive disorder: Status: Acute (3) Alcohol use disorder: Status: Acute DS: Medications Discharge Medications Home Medications: Previous Rx's Medication Instructions Recorded buspirone 15 mg tablet 1 tab PO BID 30 days #60 tabs 10/01/22 cyanocobalamin (vitamin B-12) 1,000 mcg PO DAILY 30 days #30 tabs 10/01/22 cyanocobalamin (vitamin B-12) 1,000 mcg PO DAILY 30 days #30 tabs 10/01/22 1,000 mcg tablet (Vitamin B-12) gabapentin 300 mg capsule 300 mg PO QID 30 days #120 caps 10/01/22 hydroxyzine HCl 25 mg tablet 25 mg PO Q6H PRN Anxiety 30 days 10/01/22 #120 tabs melatonin 3 mg PO BEDTIME PRN Sleep 30 days 10/01/22 #30 tabs melatonin 3 mg tablet 3 mg PO BEDTIME PRN Sleep 30 days 10/01/22 #30 tabs mirtazapine 30 mg tablet 30 mg PO BEDTIME 30 days #30 tabs 10/01/22 naltrexone 50 mg tablet 50 mg PO DAILY 30 days #30 tabs 10/01/22 quetiapine 400 mg tablet 1 tab PO BEDTIME 30 days #30 tabs 10/01/22 quetiapine 50 mg tablet 50 mg PO DAILY 30 days #30 tabs 10/01/22 trazodone 50 mg tablet 50 mg PO BEDTIME MRX1 PRN Insomnia 03/10/23 30 days #60 tabs Data Data Completed and Pending Completed studies during hospitalization [Text1]: 10/01/22 11:30 COVID-19 ([facility]) Negative COVID-19 Clin Com See Note DS: Summary Time Spent with Patient Time attestation: Total time managing care of this patient today ____ minutes. Discharge Plan Discharge Anticipated Discharge Date/Time: 10/01/22 14:00 Patient Disposition: Xfer Other Discharge Diagnosis: major depression recurrent MARILYN alcohol use disorder Referrals: Naheed Maurer NP [Primary Care Provider] - 1 Week Discharge Medications: New mirtazapine 30 mg Tablet 30 mg PO BEDTIME 30 Days Qty: 30 0RF gabapentin 300 mg Capsule 300 mg PO QID 30 Days Qty: 120 1RF hydroxyzine HCl 25 mg Tablet 25 mg PO Q6H PRN (Reason: Anxiety) 30 Days Qty: 120 1RF trazodone 50 mg Tablet 50 mg PO BEDTIME MRX1 PRN (Reason: Insomnia) 30 Days Qty: 60 1RF naltrexone 50 mg Tablet 50 mg PO DAILY 30 Days Qty: 30 0RF quetiapine 50 mg Tablet 50 mg PO DAILY 30 Days Qty: 30 1RF cyanocobalamin (vitamin B-12) [Vitamin B-12] 1,000 mcg Tablet 1,000 mcg PO DAILY 30 Days Qty: 30 1RF melatonin 3 mg Tablet 3 mg PO BEDTIME PRN (Reason: Sleep) 30 Days Qty: 30 1RF Continued buspirone 15 mg tablet 1 tab PO BID 30 Days Qty: 60 1RF quetiapine 400 mg tablet 1 tab PO BEDTIME 30 Days Qty: 30 1RF cyanocobalamin (vitamin B-12) 1,000 mcg PO DAILY 30 Days Qty: 30 0RF melatonin 3 mg PO BEDTIME PRN (Reason: Sleep) 30 Days Qty: 30 1RF Discharge Orders: Discharge Order (Routine); Ordered 10/01/22 Ordered By: Brian Billingsley Diet: Advance to usual diet Activity on Discharge: As tolerated Stand Alone Forms: Patient Portal Discharge page, Community Support Care Plan Goals: improved mood management of anxiety mood without alcohol Health Concerns: alcohol use depression anxiety Plan of Treatment: rehab program psychiatry therapy medication Assessment: future oriented anxious regarding situation no self harm Discharge Date/Time: 10/01/22 15:36
== END 2022-10-01 15:36 | disposition other institution (70) | DRG 885 ==
PROVIDERS: Admitting Provider Psychiatry & Neurology Psychiatry; PCP Nurse Practitioner; Visit Provider Psychiatry & Neurology Psychiatry
DX: F33.9 Major depressive disorder, recurrent, unspecified (principal); R45.851 Suicidal ideations; F41.1 Generalized anxiety disorder; F10.20 Alcohol dependence, uncomplicated; M47.816 Spondylosis without myelopathy or radiculopathy, lumbar region; G89.29 Other chronic pain; Z20.822 Contact with and (suspected) exposure to COVID-19; Z59.02 Unsheltered homelessness; Z88.5 Allergy status to narcotic agent; Z79.899 Other long term (current) drug therapy
CPT/HCPCS: 36415; 80053; 80061; 87635; J1885